=== PATIENT | male | born 1930 | race Caucasian/White ===

== ENCOUNTER 2017-07-08 07:35 | Outpatient (CLI) | payer MEDICARE, OTHER, BC ==
[2017-07-08] MEDS ORDERED: Iopamidol 370 76% 100 ML VIAL ONE (09:44)
--- NOTE | 2017-07-08 09:58 | CT ---
CT CHEST WITH IV CONTRAST CT ABDOMEN AND PELVIS WITH IV CONTRAST: History: Lymphoma. Re-staging. Comparison: 02-13-17 FINDINGS: Lungs remain hyperinflated with atelectasis and scarring at the lung bases. At the left posterolatera l lung base within the superior segment left lower lobe, a subpleural 0.5 cm noncalcified nodule is n ow evident. There is calcification within the arterial structures with fusiform ectasia of the ascending aorta, s imilar in appearance to the prior study. No enlarged lymph nodes are apparent within the mediastinum. Cystic lesion within the lateral segment left liver lobe is stable. The largest irregular shaped low density lesion within the spleen is now 4.4 x 3.2 x 3.7 cm greatest diameters. The more subtle ill-de fined lesion within the medial aspect of the spleen is 2.5 cm in greatest length. Cysts arise from the cortex of the kidneys. No enlarged lymph nodes are apparent within the abdomen o r pelvis. The nonenlarged lymph nodes to the left side of the urinary bladder and adjacent to the rig ht common femoral vein are less pronounced than on the previous study. There are degenerative changes of the lumbar spine. Diverticula arise from the colon without adjacent inflammation. IMPRESSION: 1. Continued slight interval improvement, with decreased conspicuity of the nonenlarged abdominal/pel nimco lymph nodes and slight interval decrease in size of the smaller splenic lesion. No new areas of a denopathy are evident. 2. The subpleural 0.5 cm nodule within the superior segment left lower lobe was not well visualized o n the 02-13-17 study but is stable compared to the 09-09-16 exam. Therefore, no new abnormalities are e vident. 3. Atherosclerosis. POS: YENI
== END 2017-07-08 07:36 | disposition home or self-care (01) ==
LOC: CT 07:35
PROVIDERS: ATTEND Internal Medicine Medical Oncology
DX: C85.90 Non-Hodgkin lymphoma, unspecified, unspecified site (principal); D73.89 Other diseases of spleen; R91.1 Solitary pulmonary nodule
CPT/HCPCS: 71260; 74177; 82565

== ENCOUNTER 2017-09-13 09:35 | Inpatient (IN) | payer MEDICARE, OTHER, BC ==
[2017-09-13] MEDS ORDERED: Nitroglycerin 0.4 MG TAB (25 Tab Bottle) ONE (10:09)
[2017-09-13 10:21] LABS: ALT (SGPT) 25 U/L (8-55); AST (SGOT) 24 U/L (5-34); Albumin 4.1 g/dL (3.4-4.8); Alkaline Phosphatase 97 U/L (40-150); Anion Gap 15 mmol/L (10-20); BUN (Urea Nitrogen) 28 mg/dL (8.4-25.7); Bilirubin, Total 0.6 mg/dL (0.2-1.2); CK (CPK) 65 U/L (30-200); Calc. Creatinine Clearance 0 mL/min (70-130); Calcium 9.4 mg/dL (7.8-10.44); Carbon Dioxide 23 mmol/L (23-31); Chloride 109 mmol/L (98-107); Estimated GFR-MDRD 58; Globulin 2.1 g/dL (2.4-3.5); Glucose 112 mg/dL (83-110); Potassium 4.2 mmol/L (3.5-5.1); Protein, Total 6.2 g/dL (5.8-8.1); Sodium 143 mmol/L (136-145)
[2017-09-13 10:27] LABS: CKMB 3.7 ng/mL (0-6.6); Troponin I 0.144 ng/mL (< 0.028)
[2017-09-13 10:35] LABS: #Eosinphils 0.1 thou/uL (0.0-0.7); #Lymphocytes 0.6 thou/uL (1.20-3.40); #Monocytes 0.4 thou/uL (0.11-0.59); #Neutrophils 3.1 thou/uL (1.40-6.50); %Basophils 0.4 % (0.0-1.0); %Eosinophils 1.8 % (0.0-10.0); %Lymphocytes 13.7 % (21.0-51.0); %Monocytes 10.4 % (0.0-10.0); %Neutrophils 73.7 % (42.0-75.0); Hemoglobin 13.5 g/dL (14.0-18.0); Mean Corpuscular HGB CONC 32.7 g/dL (32.0-36.0); Mean Corpuscular Hemoglobin 29.2 pg (27.0-31.0); Mean Corpuscular Volume 89.4 fl (80.0-94.0); Platelet Count 115 thou/uL (130-400); RBC Distribution Width 15.9 % (11.5-14.5); Red Blood Cell (RBC) Count 4.62 mill/uL (4.70-6.10); White Blood Cell (WBC) Count 4.2 thou/uL (4.8-10.8)
[2017-09-13] MEDS ORDERED: Furosemide 40 MG/4 ML VIAL ONE (11:35)
[2017-09-13] MEDS ORDERED: Nitroglycerin 2% Ointment 1 INCH/1 GM Packet ONE (11:43)
--- NOTE | 2017-09-13 11:47 | RAD ---
CHEST 1 VIEW: HISTORY: An 86-year-old male with a history of chest tightness for several days. COMPARISON: 10/21/16. FINDINGS: Cardiomegaly with left ICD. Right subclavian catheter and injection port. Mild bilateral vascular c ongestion and small pleural effusions which are new from the prior study. IMPRESSION: Developing mild vascular congestion and small pleural effusions with cardiomegaly. Evidence for mini mal or early congestive heart failure. Short-term followup suggested. POS: ESTEFANI
[2017-09-13] MEDS ORDERED: Acetaminophen 325 MG TAB PO PRN ×2 (12:49→13:18)
[2017-09-13] MEDS ORDERED: Ondansetron HCl/PF 4 MG/2 ML Vial IVP PRN (12:49)
[2017-09-13] MEDS ORDERED: Ondansetron ODT 4 MG TAB SL PRN (12:49)
[2017-09-13] MEDS ORDERED: Nitroglycerin 0.4 MG TAB (25 Tab Bottle) SL PRN (13:21)
[2017-09-13] MEDS ORDERED: Nitroglycerin 0.4 MG TAB (25 Tab Bottle) SL SCH (13:45)
[2017-09-13] MEDS ORDERED: Enoxaparin Sodium 80 MG/0.8 ML SYRINGE SC SCH (14:00)
[2017-09-13 14:01] LABS: Troponin I 0.183 ng/mL (< 0.028)
[2017-09-13] MEDS: Furosemide 40 MG/4 ML VIAL SLOW IVP SCH (14:26)
--- NOTE | 2017-09-13 16:21 | HP ---
PRIMARY CARE PHYSICIAN: Dr. Ortiz. CHIEF COMPLAINT: Shortness of breath/chest pain. HISTORY OF PRESENT ILLNESS: Patient is a very pleasant 86-year-old male, who [facility] the [facility] with complaints of shortness of breath and chest pain, which started night. The patient s tated that the shortness of breath woke him up night and then he started having some chest t ightness. The patient states that, at baseline, he does not have any chest pain; however, at times i f he exerts himself too much, he does get a little bit of shortness of breath. Patient stated that h e was resting when the chest tightness and shortness of breath occurred. The patient recently, about a few months ago, finished his course of chemotherapy for diagnosis of lymphoma. Patient does have a pacemaker for arrhythmias. The patient also has had a cardiac catheterization in 2014 with no sign ificant coronary disease; however, had a small aneurysm dilation. The patient currently states that he does have some chest discomfort, which has improved with the nitro paste. He denies any nausea, v omiting, or radiation of his chest tightness to his neck or his arms. The patient states that he nor benito sleeps flat; however, for the past few days he has been sleeping upright due to the worsening s hortness of breath. Patient is positive for orthopnea and PND. The patient also states that, at occ asional times, he feels that his heart racing really fast. Patient states that he has lost quite a b it of weight given his diagnosis of cancer. The ER doctor stated that initially reviewing the EKG shows concern for possible NJ, so she did call the on-call community integration specialist, who did not think it was an acute NJ that was going on. PAST MEDICAL HISTORY: 1. History of lymphoma, status post chemotherapy. 2. Hypertension. PAST SURGICAL HISTORY: It states on the charting appendectomy; however, upon asking the patient, he said he has not had any surgery in the past. SOCIAL HISTORY: He denies any alcohol or drug abuse; however, states that he used to smoke a cigar. ALLERGIES: No known drug allergies. FAMILY HISTORY: Mom lived up to the age of 95 and at old age. Father at the age of 70 and he had an NJ. REVIEW OF SYSTEMS: Except for the ones mentioned in the HPI, the rest of the review of systems were negative. Constitutional: Weight loss or gain, ability to conduct usual activities. Skin: Rash, i tching. Eyes: Double vision, pain. ENT/Mouth: Nose bleeding, neck stiffness, pain, tenderness. C ardiovascular: Palpitations, dyspnea on exertion, orthopnea. Respiratory: Shortness of breath, whe ezing, cough, hemoptysis, fever, or night sweats. Gastrointestinal: Poor appetite, abdominal pain, heartburn, nausea, vomiting, constipation, or diarrhea. Genitourinary: Urgency, frequency, dysuria, nocturia. Musculoskeletal: Pain, swelling. Neurologic/Psychiatric: Anxiety, depression. Allergy /Immunologic: Skin rash, bleeding tendency. PHYSICAL EXAMINATION: VITAL SIGNS: As the following, temperature 97.1, pulse 79, respirations are 20. He is 97% on 2 lite rs, blood pressure is 172/84. GENERAL: He is awake, alert, oriented x3, does not appear in distress. CARDIOVASCULAR: S1 and S2 present. Some arrhythmias; however, it is hard to say if it is atrial fib rillation versus the paced rhythm this patient is on. RESPIRATORY: Clear per auscultation. No rhonchi or wheezes noted. ABDOMEN: Soft and nontender. Bowel sounds are present x2. EXTREMITIES: No edema. LABORATORY DATA: As the following: WBC of 4.2, hemoglobin of 13.5, hematocrit of 41.3, platelets of 115. Chemistry: Sodium of 144, potassium 4.2, BUN of 28, creatinine 1.2. His troponins are mildly elevated at 0.144 to 0.183. His BNP is 2738. ASSESSMENT AND PLAN: The patient is a very pleasant 86-year-old male, who initially presented to the hospital with complaints of chest tightness and shortness of breath. 1. Chest tightness, shortness of breath, possible [id number] myocardial infarction. He does h ave chest pressure, chest tightness with elevated troponins. We will continue to trend the troponins x3. Cardiology consulted. We will put patient on Lovenox subcutaneous for Cardiology dosing and al so renal dosing. We will continue the patient's aspirin and Plavix. 2. Hypertension. The patient's blood pressure is really elevated. We will order some stat nitrogly cerin sublingual. If not, we will start patient on a drip. Patient does take home medications, we w ill resume them. 3. Elevated troponins, possible [id number] myocardial infarction. We will start the patient o n subcutaneous heparin and also consult Cardiology. I will also get [employer] to evaluate the patie nt's pacemaker for any kind of arrhythmia. There was some mention of possible ventricular tachycardi a. However, I am not really sure. So, we will ask [employer] to evaluate the patient's pacemaker. Patient's last ejection fraction was 50%-55%. This was in 10/2016.
[2017-09-13 16:32] LABS: Troponin I 0.179 ng/mL (< 0.028)
[2017-09-13] MEDS ORDERED: Metoprolol Tartrate 50 MG TAB PO SCH (21:00)
[2017-09-13] MEDS ORDERED: Labetalol HCl 100 MG/20 ML VIAL SLOW IVP PRN (21:24)
[2017-09-13] MEDS: Atorvastatin Calcium 20 MG TAB PO SCH (21:35)
[2017-09-14] MEDS: hydrALAZINE 20 MG/ML VIAL SLOW IVP PRN (01:52)
[2017-09-14 04:57] LABS: #Eosinphils 0.2 thou/uL (0.0-0.7); #Lymphocytes 0.7 thou/uL (1.20-3.40); #Monocytes 0.4 thou/uL (0.11-0.59); #Neutrophils 2.3 thou/uL (1.40-6.50); %Eosinophils 5.3 % (0.0-10.0); %Lymphocytes 19.3 % (21.0-51.0); %Monocytes 10.8 % (0.0-10.0); %Neutrophils 63.6 % (42.0-75.0); Hemoglobin 12.9 g/dL (14.0-18.0); Mean Corpuscular HGB CONC 33.3 g/dL (32.0-36.0); Mean Corpuscular Hemoglobin 29.4 pg (27.0-31.0); Mean Corpuscular Volume 88.3 fl (80.0-94.0); Mean Platelet Volume 10.1 fL (7.4-10.4); Platelet Count 114 thou/uL (130-400); RBC Distribution Width 15.9 % (11.5-14.5); Red Blood Cell (RBC) Count 4.39 mill/uL (4.70-6.10); White Blood Cell (WBC) Count 3.6 thou/uL (4.8-10.8)
[2017-09-14] MEDS: Furosemide 40 MG/4 ML VIAL SLOW IVP SCH ×2 (05:02→14:38)
[2017-09-14 05:15] LABS: Anion Gap 14 mmol/L (10-20); BUN (Urea Nitrogen) 30 mg/dL (8.4-25.7); Calc. Creatinine Clearance 38 mL/min (70-130); Calcium 9.6 mg/dL (7.8-10.44); Carbon Dioxide 27 mmol/L (23-31); Chloride 106 mmol/L (98-107); Estimated GFR-MDRD 52; Glucose 102 mg/dL (83-110); Potassium 3.7 mmol/L (3.5-5.1); Sodium 143 mmol/L (136-145)
[2017-09-14] MEDS: Digoxin 0.125 MG TAB PO SCH (08:58)
[2017-09-14] MEDS: Potassium Chloride 20 MEQ TAB PO SCH (08:59)
[2017-09-14] MEDS: Tamsulosin HCl 0.4 MG CAP PO SCH (08:59)
[2017-09-14] MEDS: Aspirin 81 mg Enteric Coated Tablet PO SCH (08:59)
[2017-09-14] MEDS ORDERED: NIFEdipine XL 30 MG TAB PO SCH (09:00)
[2017-09-14] MEDS ORDERED: Prevnar 13-Val Conj/PF 0.5 ML SYRINGE IM ONE (09:00)
[2017-09-14] MEDS ORDERED: Enoxaparin Sodium 80 MG/0.8 ML SYRINGE SC SCH (09:00)
--- NOTE | 2017-09-14 10:23 | PDOC.PN ---
- Subjective Encounter Start Date: 09/14/17 Encounter Start Time: 10:28 Subjective: No new complaints. -: Refused lasix today because he feels his urine output is "too much" -: NO acute events overnight - Objective Resuscitation Status: Resuscitation Status FULL:Full Resuscitation MAR Reviewed: Yes Vital Signs & Weight: Vital Signs (12 hours) Temp Pulse Resp BP Pulse Ox 09/14/17 08:50 98 F 80 20 176/64 H 92 L 09/14/17 08:01 97.6 F 60 20 173/87 H 97 09/14/17 03:27 97.7 F 81 24 H 162/82 H 94 L 09/14/17 01:52 78 09/14/17 01:51 192/80 H 09/13/17 23:34 162/78 H 09/13/17 23:18 98.8 F 78 22 H 96 Weight Weight 135 lb 3.2 oz I&O: 09/13/17 09/14/17 09/15/17 06:59 06:59 06:59 Intake Total 600 Output Total 2500 Balance -1900 Result Diagrams: 09/14/17 03:57 09/14/17 03:57 Phys Exam - Physical Examination Constitutional: NAD HEENT: PERRLA, moist MMs, sclera anicteric Neck: no JVD, supple, full ROM Respiratory: no wheezing, no rales, no rhonchi, clear to auscultation bilateral Cardiovascular: RRR, no significant murmur, no rub Gastrointestinal: soft, non-tender, no distention, positive bowel sounds Musculoskeletal: no edema, pulses present Neurological: non-focal, moves all 4 limbs Psychiatric: normal affect, A&O x 3 Skin: no rash, normal turgor Dx/Plan (1) Acute congestive heart failure with left ventricular diastolic dysfunction Code(s): I50.31 - ACUTE DIASTOLIC (CONGESTIVE) HEART FAILURE Status: Acute Comment: Improving with diuresis. Will continue furosemide and home medications. Awaiting cardiology review. Last EF 50-55%. (2) Elevated troponin Code(s): R74.8 - ABNORMAL LEVELS OF OTHER SERUM ENZYMES Status: Acute Comment: Likely 2/2 demand ischemia (type 2 NSTEMi). Trending down. (3) HTN (hypertension) Code(s): I10 - ESSENTIAL (PRIMARY) HYPERTENSION Status: Chronic Comment: Controlled and at goal. Monitor. (4) BPH (benign prostatic hyperplasia) Code(s): N40.0 - BENIGN PROSTATIC HYPERPLASIA WITHOUT LOWER URINRY TRACT SYMP Status: Chronic (5) Elevated serum creatinine Code(s): R79.89 - OTHER SPECIFIED ABNORMAL FINDINGS OF BLOOD CHEMISTRY Status : Acute Comment: Cat 2/2 diuretics. Will monitor. - Plan cont current plan of care, DVT proph w/lovenox * . Review of Systems - Review of Systems Constitutional: negative: fever, chills, sweats, weakness, malaise, other Eyes: negative: Pain, Vision Change, Conjunctivae Inflammation, Eyelid Inflammation, Redness, Other ENT: negative: Ear Pain, Ear Discharge, Nose Pain, Nose Discharge, Nose Congestion, Mouth Pain, Mouth Swelling, Throat Pain, Throat Swelling, Other Respiratory: negative: Cough, Dry, Shortness of Breath, Hemoptysis, SOB with Excertion, Pleuritic Pain, Sputum, Wheezing Cardiovascular: negative: chest pain, palpitations, orthopnea, paroxysmal nocturnal dyspnea, edema, light headedness, other Gastrointestinal: negative: Nausea, Vomiting, Abdominal Pain, Diarrhea, Constipation, Melena, Hematochezia, Other Genitourinary: negative: Dysuria, Frequency, Incontinence, Hematuria, Retention , Other Musculoskeletal: negative: Neck Pain, Shoulder Pain, Arm Pain, Back Pain, Hand Pain, Leg Pain, Foot Pain, Other Skin: negative: Rash, Lesions, Severino, Bruising, Other Neurological: negative: Weakness, Numbness, Incoordination, Change in Speech, Confusion, Seizures, Other - Medications/Allergies Allergies/Adverse Reactions: Allergies Allergy/AdvReac Type Severity Reaction Status Date / Time No Known Drug Allergies Allergy Verified 09/13/17 13:09 Medications: Current Medications Acetaminophen (Tylenol) 650 mg PO Q4H PRN PRN Reason: Headache/Fever or Pain Aspirin (Ecotrin) 81 mg PO DAILY [facility] [place] Last Admin: 09/14/17 08:59 Dose: 81 mg Atorvastatin Calcium (Lipitor) 20 mg PO HS [facility] Last Admin: 09/13/17 21:35 Dose: 20 mg Digoxin (Lanoxin) 0.125 mg PO DAILY [facility] Last Admin: 09/14/17 08:58 Dose: 0.125 mg Enoxaparin Sodium (Lovenox) 65 mg SC DAILY [facility] [place] Last Admin: 09/14/17 09:00 Dose: 65 mg Furosemide (Lasix) 40 mg SLOW IVP 0600,1400 [facility] [place] Last Admin: 09/14/17 05:02 Dose: Not Given Hydralazine HCl (Apresoline) 10 mg SLOW IVP Q4H PRN PRN Reason: SBP > 180 OR DBP > 100 Last Admin: 09/14/17 01:52 Dose: 10 mg Labetalol HCl (Normodyne) 10 mg SLOW IVP Q4H PRN PRN Reason: SBP> 180 OR DBP > 100 Last Admin: 09/13/17 21:34 Dose: 10 mg Nitroglycerin (Nitrostat) 0.4 mg SL Q5MIN PRN PRN Reason: Chest Pain Last Admin: 09/13/17 15:46 Dose: 0.4 mg Pantoprazole Sodium (Protonix) 40 mg PO DAILY [facility] [place] Last Admin: 09/14/17 08:59 Dose: 40 mg Potassium Chloride (K-Dur) 20 meq PO [facility] Stop: 09/17/17 08:01 Last Admin: 09/14/17 08:59 Dose: 20 meq Tamsulosin HCl (Flomax) 0.4 mg PO DAILY [facility] [place] Last Admin: 09/14/17 08:59 Dose: 0.4 mg
[2017-09-14] MEDS ORDERED: Carvedilol 3.125 MG TAB PO SCH (11:45)
--- NOTE | 2017-09-14 16:10 | CON ---
DATE OF CONSULTATION: 09/14/2017 HISTORY: Victorino Callaway is an 86-year-old white male, who is followed with Dr. Swain for many years. He underwent cardiac catheterization in 04/1989. 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 He did undergo ergonovine infusion and developed 40%-50% narrowing in the first diagonal. He has had a pacemaker placed and that was recently replaced in 06/2017. Most recent echocardiogram was in 08/2016, he had an ejection fraction of 55%-60% with moderate aortic insufficiency, moderate mitral regurgitation, moderate tricuspid regurgitation. He also underwent a Cardiolite scan in the office in 06/2014, which apparently was unremarkable. He does state that he has been having increasing exertional dyspnea. He has not had any chest discomfort until the morning of 09/13/2017 when he started to have chest tightness associated with shortness of breath. The pain was continuous and was pleuritic in nature. Pain lasted for approximately 6-8 hours. He came to the emergency room for further evaluation. At the present time, he denied any chest discomfort. PAST MEDICAL HISTORY: He is recently diagnosed having lymphoma and just finished a course of chemotherapy at the end of last year. He has hypertension , paroxysmal atrial fibrillation on the pacemaker, and hypercholesterolemia. MEDICATIONS: Potassium 20 mEq daily, furosemide 20 daily, digoxin 0.125 daily, atorvastatin 20 at bedtime, Flomax 0.4 daily, and aspirin 81 daily. ALLERGIES: None. OPERATIONS: Pacemaker insertion. SOCIAL HISTORY: Former cigar smoker. Does not drink. FAMILY HISTORY: Father of an myocardial infraction. REVIEW OF SYSTEMS: Twelve point review of systems otherwise unremarkable. PHYSICAL EXAMINATION: VITAL SIGNS: Blood pressure 176/64, pulse of 80. HEENT: PERRL. NECK: Supple. LUNGS: Chest reveals faint rales at the right base. CARDIAC: S1 and S2 are normal without any S3 or S4. There is a 2/6 systolic murmur in the aortic area and also a 2/6 diastolic decrescendo murmur in the aortic area. ABDOMEN: Normal bowel sounds without tenderness, organomegaly. EXTREMITIES: Revealed trace pretibial edema. NEUROLOGIC: Grossly intact. SKIN: Warm and dry. LABORATORY DATA: EKG reveals atrial pacing, occasional ventricular pacing, and probable left ventricular hypertrophy. Chest x-ray revealed mild vascular congestion and small pleural effusions. Sodium 143, potassium 3.7, chloride 106 , carbon dioxide 27, BUN 30, creatinine 1.31. Troponin I 0.183. BNP 2738.0, hemoglobin 12.9, hematocrit 38.8, white count 3600, platelets 114,000. IMPRESSION: 1. Possible non ST elevation myocardial infarction. 2. Probable diastolic heart failure with vascular congestion as well as small pleural effusions on chest x-ray, significantly elevated BNP, but normal left ventricular systolic function on echo in the past. 3. 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 4. Aortic insufficiency murmur heard at this time. 5. Paroxysmal atrial fibrillation with episodes seen on the pacemaker up to 1 hour. 6. Hypercholesterolemia. 7. Status post pacemaker. PLAN: Patient will be diuresed. Echocardiogram will be performed to reassess left ventricular function as well as reassessment of his aortic insufficiency now that a murmur is heard. Consideration also may need to be given to cardiac catheterization. VAISHALI
[2017-09-14] MEDS: Carvedilol 6.25 MG TAB PO SCH (16:54)
[2017-09-14] MEDS: Atorvastatin Calcium 20 MG TAB PO SCH (21:54)
[2017-09-15 04:33] LABS: #Eosinphils 0.3 thou/uL (0.0-0.7); #Lymphocytes 0.8 thou/uL (1.20-3.40); #Monocytes 0.4 thou/uL (0.11-0.59); #Neutrophils 1.3 thou/uL (1.40-6.50); %Basophils 1.3 % (0.0-1.0); %Lymphocytes 27.7 % (21.0-51.0); %Monocytes 13.5 % (0.0-10.0); %Neutrophils 45.6 % (42.0-75.0); Mean Corpuscular HGB CONC 33.1 g/dL (32.0-36.0); Mean Corpuscular Hemoglobin 29.6 pg (27.0-31.0); Mean Corpuscular Volume 89.4 fl (80.0-94.0); Mean Platelet Volume 9.7 fL (7.4-10.4); Platelet Count 105 thou/uL (130-400); RBC Distribution Width 15.7 % (11.5-14.5); Red Blood Cell (RBC) Count 4.06 mill/uL (4.70-6.10); White Blood Cell (WBC) Count 2.7 thou/uL (4.8-10.8)
[2017-09-15 04:49] LABS: Anion Gap 12 mmol/L (10-20); BUN (Urea Nitrogen) 34 mg/dL (8.4-25.7); Calc. Creatinine Clearance 43 mL/min (70-130); Calcium 9.1 mg/dL (7.8-10.44); Carbon Dioxide 27 mmol/L (23-31); Chloride 107 mmol/L (98-107); Estimated GFR-MDRD 64; Glucose 88 mg/dL (83-110); Potassium 3.9 mmol/L (3.5-5.1); Sodium 142 mmol/L (136-145)
[2017-09-15] MEDS: Furosemide 40 MG/4 ML VIAL SLOW IVP SCH ×2 (07:36→14:04)
[2017-09-15 08:37] VITALS: BMI 21.1
[2017-09-15] MEDS: Carvedilol 6.25 MG TAB PO SCH ×3 (09:12→20:29)
[2017-09-15] MEDS: Potassium Chloride 20 MEQ TAB PO SCH (09:12)
[2017-09-15] MEDS: Digoxin 0.125 MG TAB PO SCH (09:12)
[2017-09-15] MEDS: Tamsulosin HCl 0.4 MG CAP PO SCH (09:13)
[2017-09-15] MEDS: Aspirin 81 mg Enteric Coated Tablet PO SCH (09:37)
--- NOTE | 2017-09-15 11:50 | PDOC.PN ---
- Subjective Encounter Start Date: 09/15/17 Encounter Start Time: 12:00 Subjective: Feels better. -: No acute events overnight. Patient was going to leave AMA to be with his (who is wheelchair bound) but decided to stay after they told him his could be brought here to visit. - Objective Resuscitation Status: Resuscitation Status FULL:Full Resuscitation MAR Reviewed: Yes Vital Signs & Weight: Vital Signs (12 hours) Temp Pulse Resp BP Pulse Ox 09/15/17 08:41 98 F 72 20 178/76 H 93 L 09/15/17 04:00 98.0 F 75 20 174/89 H 99 Weight Admit Weight 144 lb Weight 139 lb I&O: 09/14/17 09/15/17 09/16/17 06:59 06:59 06:59 Intake Total 600 570 Output Total 2500 75 Balance -1900 495 Result Diagrams: 09/15/17 04:01 09/15/17 04:01 Phys Exam - Physical Examination Constitutional: NAD HEENT: PERRLA, moist MMs, sclera anicteric Neck: no JVD, supple, full ROM Respiratory: no wheezing, no rales, no rhonchi, clear to auscultation bilateral Cardiovascular: RRR, no rub Systolic murmur Gastrointestinal: soft, non-tender, no distention, positive bowel sounds Musculoskeletal: no edema, pulses present Neurological: non-focal, moves all 4 limbs Psychiatric: normal affect, A&O x 3 Skin: no rash, normal turgor Dx/Plan (1) Acute congestive heart failure with left ventricular diastolic dysfunction Code(s): I50.31 - ACUTE DIASTOLIC (CONGESTIVE) HEART FAILURE Status: Acute Comment: Neal pain free, Improving with diuresis. Will continue furosemide and home medications. Last EF 50-55%. Cardiology reviewed. Patient might need cardiac catheterization. (2) Elevated troponin Code(s): R74.8 - ABNORMAL LEVELS OF OTHER SERUM ENZYMES Status: Acute Comment: STEMi v NSTEMi. Trending down. Cardiology on board. Recs appreciated. (3) HTN (hypertension) Code(s): I10 - ESSENTIAL (PRIMARY) HYPERTENSION Status: Chronic Qualifiers: Hypertension type: essential hypertension Qualified Code(s): I10 - Essential (primary) hypertension Comment: Not at goal. Coreg dose increased. Will monitor and titrate regimen. (4) BPH (benign prostatic hyperplasia) Code(s): N40.0 - BENIGN PROSTATIC HYPERPLASIA WITHOUT LOWER URINRY TRACT SYMP Status: Chronic Qualifiers: Lower urinary tract symptom presence: symptoms absent Qualified Code(s): N40.0 - Benign prostatic hyperplasia without lower urinary tract symptoms Comment: Continue home medications. (5) Elevated serum creatinine Code(s): R79.89 - OTHER SPECIFIED ABNORMAL FINDINGS OF BLOOD CHEMISTRY Status : Acute Comment: Improving. Likleycardiorenal syndrome. Will monitor. (6) Thrombocytopenia Code(s): D69.6 - THROMBOCYTOPENIA, UNSPECIFIED Status: Acute Comment: No signs of bleeding. Heparin products being held. Will place on SCds while in bed. - Plan cont current plan of care, DVT proph w/SCDs * . Review of Systems - Medications/Allergies Allergies/Adverse Reactions: Allergies Allergy/AdvReac Type Severity Reaction Status Date / Time No Known Drug Allergies Allergy Verified 09/13/17 13:09 Medications: Current Medications Acetaminophen (Tylenol) 650 mg PO Q4H PRN PRN Reason: Headache/Fever or Pain Aspirin (Ecotrin) 81 mg PO DAILY [facility] Last Admin: 09/15/17 09:37 Dose: 81 mg Atorvastatin Calcium (Lipitor) 20 mg PO HS [facility] Last Admin: 09/14/17 21:54 Dose: 20 mg Carvedilol (Coreg) 6.25 mg PO BID-WM [facility] Last Admin: 09/15/17 09:12 Dose: 6.25 mg Digoxin (Lanoxin) 0.125 mg PO DAILY [facility] Last Admin: 09/15/17 09:12 Dose: 0.125 mg Furosemide (Lasix) 40 mg SLOW IVP 0600,1400 [facility] Last Admin: 09/15/17 07:36 Dose: Not Given Hydralazine HCl (Apresoline) 10 mg SLOW IVP Q4H PRN PRN Reason: SBP > 180 OR DBP > 100 Last Admin: 09/14/17 01:52 Dose: 10 mg Labetalol HCl (Normodyne) 10 mg SLOW IVP Q4H PRN PRN Reason: SBP> 180 OR DBP > 100 Last Admin: 09/13/17 21:34 Dose: 10 mg Nitroglycerin (Nitrostat) 0.4 mg SL Q5MIN PRN PRN Reason: Chest Pain Last Admin: 09/13/17 15:46 Dose: 0.4 mg Pantoprazole Sodium (Protonix) 40 mg PO DAILY [facility] Last Admin: 09/15/17 09:12 Dose: 40 mg Potassium Chloride (K-Dur) 20 meq PO [facility] Stop: 09/17/17 08:01 Last Admin: 09/15/17 09:12 Dose: 20 meq Tamsulosin HCl (Flomax) 0.4 mg PO DAILY [facility] Last Admin: 09/15/17 09:13 Dose: 0.4 mg
[2017-09-15] MEDS: Atorvastatin Calcium 20 MG TAB PO SCH (20:29)
[2017-09-15] MEDS: hydrALAZINE 20 MG/ML VIAL SLOW IVP PRN (20:30)
[2017-09-16 05:13] LABS: Anion Gap 11 mmol/L (10-20); BUN (Urea Nitrogen) 39 mg/dL (8.4-25.7); Band 1 % (5-11); Calc. Creatinine Clearance 48 mL/min (70-130); Calcium 9.6 mg/dL (7.8-10.44); Carbon Dioxide 26 mmol/L (23-31); Cardiac Risk 3.2 (Less than 4.5); Chloride 107 mmol/L (98-107); Cholesterol 161 mg/dl (< 200 Desired); Eosinophils 4 % (0-10); Estimated GFR-MDRD 72; Glucose 99 mg/dL (83-110); HDL Cholesterol 50 mg/dL (>60 Neg Risk); Hemoglobin 12.9 g/dL (14.0-18.0); LDL Cholesterol, Calculated 100 mg/dL; Lymphocytes 22 % (21-51); MDiff Complete? YES; Mean Corpuscular HGB CONC 32.7 g/dL (32.0-36.0); Mean Corpuscular Hemoglobin 29.3 pg (27.0-31.0); Mean Corpuscular Volume 89.6 fl (80.0-94.0); Mean Platelet Volume 10.7 fL (7.4-10.4); Monocytes 17 % (0-10); Neutrophil 56 % (42-75); Platelet Count 127 thou/uL (130-400); Potassium 4.1 mmol/L (3.5-5.1); RBC Distribution Width 15.9 % (11.5-14.5); Red Blood Cell (RBC) Count 4.41 mill/uL (4.70-6.10); Sodium 140 mmol/L (136-145); Triglycerides 56 mg/dL (Less than 150); White Blood Cell (WBC) Count 3.7 thou/uL (4.8-10.8)
[2017-09-16] MEDS: Furosemide 40 MG/4 ML VIAL SLOW IVP SCH (06:30)
[2017-09-16] MEDS: Digoxin 0.125 MG TAB PO SCH (08:23)
[2017-09-16] MEDS: Potassium Chloride 20 MEQ TAB PO SCH (08:23)
[2017-09-16] MEDS: Aspirin 81 mg Enteric Coated Tablet PO SCH (08:23)
[2017-09-16] MEDS: Tamsulosin HCl 0.4 MG CAP PO SCH (08:24)
[2017-09-16] MEDS: Carvedilol 6.25 MG TAB PO SCH ×3 (08:24→20:07)
[2017-09-16] MEDS ORDERED: Iopamidol 370 76% 100 ML VIAL ONE (09:18)
[2017-09-16] MEDS ORDERED: Iopamidol 370 76% 50 ML VIAL FS ONE (09:18)
[2017-09-16] MEDS ORDERED: Communication Order-Pharmacy FS SCH (09:45)
[2017-09-16] MEDS: Sodium Chloride 0.9% 1,000 ML IV SCH ×2 (10:07→19:31)
--- NOTE | 2017-09-16 11:09 | PDOC.PN ---
- Subjective Encounter Start Date: 09/16/17 Encounter Start Time: 11:11 Subjective: No complaints. Feels "great" -: No acute events overnight. - Objective Resuscitation Status: Resuscitation Status FULL:Full Resuscitation MAR Reviewed: Yes Vital Signs & Weight: Vital Signs (12 hours) Temp Pulse Resp BP Pulse Ox 09/16/17 08:23 73 09/16/17 08:00 98 F 73 16 98 09/16/17 07:42 98 F 83 14 125/84 98 09/16/17 04:00 98.0 F 68 18 169/83 H 96 09/15/17 23:49 177/79 H Weight Admit Weight 144 lb Weight 138 lb 6.4 oz I&O: 09/15/17 09/16/17 09/17/17 06:59 06:59 06:59 Intake Total 570 1420 Output Total 75 100 Balance 495 1320 Result Diagrams: 09/16/17 04:07 09/16/17 04:07 Phys Exam - Physical Examination Constitutional: NAD HEENT: PERRLA, moist MMs, sclera anicteric Neck: no JVD, supple, full ROM Respiratory: no wheezing, no rales, no rhonchi, clear to auscultation bilateral Cardiovascular: RRR, no significant murmur, no rub Gastrointestinal: soft, non-tender, no distention, positive bowel sounds Musculoskeletal: no edema, pulses present Neurological: non-focal, moves all 4 limbs Psychiatric: normal affect, A&O x 3 Skin: no rash, normal turgor Dx/Plan (1) Acute congestive heart failure with left ventricular diastolic dysfunction Code(s): I50.31 - ACUTE DIASTOLIC (CONGESTIVE) HEART FAILURE Status: Acute Comment: Stable. Chest pain free, Improving with diuresis. Continue furosemide and home medications. EF 50-55%. Cardiology reviewed- scheduled for cardiac catheterization. (2) Elevated troponin Code(s): R74.8 - ABNORMAL LEVELS OF OTHER SERUM ENZYMES Status: Acute Comment: STEMi v NSTEMi. Trending down. Cardiology on board. Recs appreciated. Scheduled for [facility]. (3) HTN (hypertension) Code(s): I10 - ESSENTIAL (PRIMARY) HYPERTENSION Status: Chronic Qualifiers: Hypertension type: essential hypertension Qualified Code(s): I10 - Essential (primary) hypertension Comment: Controlled. At goal. Continue regimen. (4) BPH (benign prostatic hyperplasia) Code(s): N40.0 - BENIGN PROSTATIC HYPERPLASIA WITHOUT LOWER URINRY TRACT SYMP Status: Chronic Qualifiers: Lower urinary tract symptom presence: symptoms absent Qualified Code(s): N40.0 - Benign prostatic hyperplasia without lower urinary tract symptoms Comment: Continue home medications. (5) Elevated serum creatinine Code(s): R79.89 - OTHER SPECIFIED ABNORMAL FINDINGS OF BLOOD CHEMISTRY Status : Resolved Comment: Improving. Likleycardiorenal syndrome. Will monitor. (6) Thrombocytopenia Code(s): D69.6 - THROMBOCYTOPENIA, UNSPECIFIED Status: Resolved Comment: Improving. No signs of bleeding. Heparin products being held. Continue SCDs while in bed. - Plan cont current plan of care, out of bed/ambulate, DVT proph w/SCDs * . Review of Systems - Medications/Allergies Allergies/Adverse Reactions: Allergies Allergy/AdvReac Type Severity Reaction Status Date / Time No Known Drug Allergies Allergy Verified 09/13/17 13:09 Medications: Current Medications Acetaminophen (Tylenol) 650 mg PO Q4H PRN PRN Reason: Headache/Fever or Pain Aspirin (Ecotrin) 81 mg PO DAILY [facility] Last Admin: 09/16/17 08:23 Dose: 81 mg Atorvastatin Calcium (Lipitor) 20 mg PO HS [facility] Last Admin: 09/15/17 20:29 Dose: 20 mg Carvedilol (Coreg) 6.25 mg PO TID [facility] Last Admin: 09/16/17 08:24 Dose: 6.25 mg Digoxin (Lanoxin) 0.125 mg PO DAILY [facility] Last Admin: 09/16/17 08:23 Dose: 0.125 mg Hydralazine HCl (Apresoline) 10 mg SLOW IVP Q4H PRN PRN Reason: SBP > 180 OR DBP > 100 Last Admin: 09/15/17 20:30 Dose: 10 mg Sodium Chloride (Normal Saline 0.9%) 1,000 mls @ 100 mls/hr IV .Q10H [facility] Last Admin: 09/16/17 10:07 Dose: 1,000 mls Labetalol HCl (Normodyne) 10 mg SLOW IVP Q4H PRN PRN Reason: SBP> 180 OR DBP > 100 Last Admin: 09/13/17 21:34 Dose: 10 mg Miscellaneous Information (Communication Order-Pharmacy) 0 each FS ONE [facility] Stop: 09/16/17 21:00 Nitroglycerin (Nitrostat) 0.4 mg SL Q5MIN PRN PRN Reason: Chest Pain Last Admin: 09/13/17 15:46 Dose: 0.4 mg Pantoprazole Sodium (Protonix) 40 mg PO DAILY [facility] Last Admin: 09/16/17 08:24 Dose: 40 mg Potassium Chloride (K-Dur) 20 meq PO QAM-WM [facility] Stop: 09/17/17 08:01 Last Admin: 09/16/17 08:23 Dose: 20 meq Sodium Chloride (Flush - Normal Saline) 10 ml IVF Q12HR [facility] Sodium Chloride (Flush - Normal Saline) 10 ml IVF PRN PRN PRN Reason: Saline Flush Tamsulosin HCl (Flomax) 0.4 mg PO DAILY [facility] Last Admin: 09/16/17 08:24 Dose: 0.4 mg
[2017-09-16 11:24] LABS: INR-International Normal Ratio 1.1; PTT 27.3 SEC (22.9-36.1)
[2017-09-16] MEDS ORDERED: Lidocaine 1% (PF) 30 ML VIAL ONE (11:38)
[2017-09-16] MEDS ORDERED: Fentanyl 250 MCG/5 ML VIAL ONE (12:31)
[2017-09-16] MEDS ORDERED: Nitroglycerin 4.9 GM Bottle ONE (12:36)
[2017-09-16] MEDS ORDERED: Metoprolol Tartrate 5 MG/5 ML VIAL ONE (12:48)
[2017-09-16] MEDS ORDERED: hydrALAZINE 20 MG/ML VIAL ONE (13:05)
[2017-09-16] MEDS ORDERED: Heparin 10,000 UNITS/1 ML VIAL ONE ×2 (13:05→13:56)
[2017-09-16] MEDS ORDERED: TICAGRELOR 90 MG TABLET ONE (13:07)
[2017-09-16] MEDS ORDERED: Nitroglycerin 100MG/250ML BOT 250 ML ONE (13:15)
[2017-09-16] MEDS ORDERED: cloNIDine 0.1 MG TAB PO PRN (14:22)
[2017-09-16] MEDS ORDERED: TICAGRELOR 90 MG TABLET PO SCH (14:30)
[2017-09-16] MEDS ORDERED: Carvedilol 3.125 MG TAB ONE (16:12)
[2017-09-16] MEDS ORDERED: Acetaminophen 325 MG TAB ONE (17:37)
[2017-09-16] MEDS ORDERED: Labetalol HCl 100 MG/20 ML VIAL ONE (17:52)
[2017-09-16] MEDS ORDERED: Nitroglycerin 2% Ointment 1 INCH/1 GM Packet ONE (18:31)
[2017-09-16] MEDS: TICAGRELOR 90 MG TABLET PO SCH (19:10)
[2017-09-16] MEDS ORDERED: Amlodipine 5 MG TAB PO SCH (19:15)
[2017-09-16] MEDS ORDERED: Nitroglycerin 2% Ointment 1 INCH/1 GM Packet TOP SCH (20:00)
[2017-09-16] MEDS: Atorvastatin Calcium 20 MG TAB PO SCH (20:07)
[2017-09-16] MEDS ORDERED: Furosemide 20 MG/2 ML VIAL SLOW IVP SCH (23:00)
[2017-09-17 05:49] LABS: ALT (SGPT) 27 U/L (8-55); AST (SGOT) 32 U/L (5-34); Alkaline Phosphatase 92 U/L (40-150); Anion Gap 14 mmol/L (10-20); BUN (Urea Nitrogen) 34 mg/dL (8.4-25.7); Calc. Creatinine Clearance 44 mL/min (70-130); Calcium 9.6 mg/dL (7.8-10.44); Carbon Dioxide 23 mmol/L (23-31); Chloride 106 mmol/L (98-107); Estimated GFR-MDRD 64; Globulin 2.6 g/dL (2.4-3.5); Glucose 103 mg/dL (83-110); Potassium 4.3 mmol/L (3.5-5.1); Protein, Total 6.6 g/dL (5.8-8.1); Sodium 139 mmol/L (136-145)
[2017-09-17 06:17] LABS: #Lymphocytes 0.9 thou/uL (1.20-3.40); #Monocytes 0.6 thou/uL (0.11-0.59); #Neutrophils 4.7 thou/uL (1.40-6.50); %Basophils 0.5 % (0.0-1.0); %Eosinophils 0.8 % (0.0-10.0); %Lymphocytes 14.7 % (21.0-51.0); %Monocytes 9.6 % (0.0-10.0); %Neutrophils 74.4 % (42.0-75.0); Hemoglobin 14.7 g/dL (14.0-18.0); Mean Corpuscular HGB CONC 32.9 g/dL (32.0-36.0); Mean Corpuscular Hemoglobin 29.5 pg (27.0-31.0); Mean Corpuscular Volume 89.5 fl (80.0-94.0); Mean Platelet Volume 10.3 fL (7.4-10.4); Platelet Count 127 thou/uL (130-400); Red Blood Cell (RBC) Count 4.99 mill/uL (4.70-6.10); White Blood Cell (WBC) Count 6.3 thou/uL (4.8-10.8)
[2017-09-17] MEDS ORDERED: Amlodipine 5 MG TAB PO SCH (09:00)
[2017-09-17] MEDS ORDERED: Furosemide 20 MG TAB PO SCH (09:00)
[2017-09-17] MEDS: Potassium Chloride 20 MEQ TAB PO SCH (09:14)
[2017-09-17] MEDS: Digoxin 0.125 MG TAB PO SCH (09:14)
[2017-09-17] MEDS: Carvedilol 6.25 MG TAB PO SCH (09:14)
[2017-09-17] MEDS: Tamsulosin HCl 0.4 MG CAP PO SCH (09:14)
[2017-09-17] MEDS: TICAGRELOR 90 MG TABLET PO SCH (09:15)
[2017-09-17] MEDS: Aspirin 81 mg Enteric Coated Tablet PO SCH (09:15)
[2017-09-17 09:21] VITALS: BP 129/63
[2017-09-17 09:27] VITALS: TEMP 97.5
[2017-09-17] MEDS ORDERED: Spironolactone 25 MG TAB PO SCH ×2 (09:30)
--- NOTE | 2017-09-17 10:01 | PRG ---
DATE OF SERVICE: 09/17/2017 Mr. Callaway is doing well today. He underwent percutaneous stent implantation of the proximal LAD yeste rd. Mr. Callaway is awake and alert, no chest pain or pressure. PHYSICAL EXAMINATION: VITAL SIGNS: Blood pressure was high last night, but today it is 144/66, pulse 60. LUNGS: Clear. CARDIAC: Normal S1, normal S2. ABDOMEN: Soft, nontender. Right groin mildly tender. ASSESSMENT: 1. Diastolic heart failure, improved. 2. Severe coronary stenosis in the proximal LAD successfully stented. He has moderate disease in th e mid LAD not stented. 3. Nonsustained ventricular tachycardia, no recurrence. 4. Normal left ventricular systolic function. 5. Renal failure, improved. 6. Hypertension, difficult to control. 7. Previous pacemaker. PLAN: 1. He will go home on Coreg 12.5 mg twice daily. 2. Spironolactone 25 mg a day. 3. Furosemide 20 mg a day. 4. Aspirin 81 mg a day. 5. Brilinta 90 mg twice a day. 6. Atorvastatin 20 mg a day. 7. Amlodipine 5 mg a day. 8. Base met in 1 week. At this time, I have not started SUMI inhibitors or ARB in view of the history of renal failure. I am also going to start spironolactone. If the patient's renal function is normal, could consider addin g an SUMI inhibitor or ARB, but will not do it, so at the present time his systolic function is also n ormal. Need to try to avoid renal insufficiency. Long-term prognosis is guarded in this pleasant el naomy gentleman. We are going to do an ultrasound of his right groin as the stick was somewhat highe r than usual and he had some mild oozing from his groin last night. We will do this prior to being d ischarged.
--- NOTE | 2017-09-17 14:34 | DIS ---
DATE OF ADMISSION: 09/13/2017 DATE OF DISCHARGE: 09/17/2017 DISCHARGE DIAGNOSES: Acute congestive heart failure with left ventricular diastolic dysfunction, netta vated troponin, hypertension, benign prostatic hypertrophy, elevated creatinine and thrombocytopenia. HISTORY OF PRESENT ILLNESS AND HOSPITAL COURSE: An 86-year-old male who presented to the hospital wi complaints of shortness of breath and chest pain, which started the day before presentation on [place]er[place] ay. The patient had shortness of breath, which woke him up on night and was associated w ith chest tightness. At his baseline, he did not have any chest pain; however, he developed chest pa in if he exerts himself too much. He has a recent history of lymphoma and ended chemotherapy for thi s. He has a pacemaker in situ for arrhythmia. He has had a cardiac catheterization in 2014 with no significant coronary artery disease; however, had a small aneurysmal dilatation. He had orthopnea, P ND in addition to his worsening shortness of breath as well as palpitations. Physical examination wa s significant for S1 and S2 heart sounds, but no edema. His labs showed elevated BNP of 2738 and mil d troponin elevation and assessment of NSTEMI and acute diastolic heart failure and was admitted. Th e patient was started on IV diuretics and admitted to hospital. His troponins were trended and it tr ended down. He was seen by Cardiology and eventually underwent cardiac catheterization. This reveal ed 2-vessel disease with severe stenosis of the proximal LAD and a normal EF. He successfully had a PCI/drug-eluting stent placed in his LAD. His echocardiogram also revealed an ejection fraction of 5 0% to 55%. He improved remarkably with diuresis and he was discharged home. DISCHARGE MEDICATIONS: Amlodipine 5 mg daily, carvedilol 6.25 mg 3 times a day, sublingual nitroglyc karin 0.4 mg every 5 minutes as needed for chest pain, Brilinta 90 mg twice a day, tamsulosin 0.4 mg d aily, aspirin 81 mg daily, digoxin 125 mcg daily, atorvastatin 20 mg at bedtime, potassium chloride 2 0 mEq daily and furosemide 20 mg daily. PHYSICAL EXAMINATION: He was examined on the day of discharge. VITAL SIGNS: Temperature 97.5 degree Fahrenheit, blood pressure 129/63, pulse rate 74, respiratory r ate 18 and oxygen saturation 95% on room air. GENERAL: Not in acute distress, sitting comfortably in bed. HEENT: PERRLA, EOMI. Moist mucous membranes. Sclerae are anicteric. NECK: No JVD. Supple, with full range of movement. RESPIRATORY: Vesicular breath sounds bilaterally with no wheezes, rales or rhonchi. CARDIOVASCULAR: S1 and S2 with regular rate and rhythm. He has a systolic murmur. GASTROINTESTINAL: Soft, nontender and nondistended with positive bowel sounds. MUSCULOSKELETAL: No edema or pulses present. NEUROLOGICAL: Nonfocal, moving all four limbs. PSYCHIATRIC: Normal mood and affect. Alert and oriented x3. SKIN: No rash with normal turgor. LABORATORY DATA: WBC 6.3, hemoglobin 14.7 and platelet count 127. Sodium 139, potassium 4.3, chlori de 106, carbon dioxide 23, anion gap 14, BUN 34, creatinine 1.1, glucose 103 and calcium 9.6. IMAGING DATA: Lower extremity ultrasound, chest x-ray and echocardiogram. PROCEDURE PERFORMED: Cardiac catheterization. CONSULTS: Cardiology. CONDITION AT DISCHARGE: Stable and improved. DIET: Heart healthy, low salt. ACTIVITY: Resume as tolerated and as directed by cardiology. CARE GOALS: He is to follow up with his primary care physician within 1 week of discharge for repeat labs. Discharge time 65 minutes including chart review and documentation.
--- NOTE | 2017-09-17 16:44 | ULT ---
FOCUSED VASCULAR ULTRASOUND OF THE RIGHT INGUINAL REGION 09/17/17 COMPARISON: None. HISTORY: Recent catheterization, right groin discomfort. Evaluate for a pseudoaneurysm. TECHNIQUE: Multiplanar rose scale sonographic imaging of the arterial and venous structures of the right inguina l region obtained with color flow and spectral analysis. FINDINGS: The right common femoral artery and right common femoral vein are patent and demonstrate appropriate arterial and venous waveforms respectively. No sonographic evidence for hematoma or pseudoaneurysm se en. IMPRESSION: No evidence for pseudoaneurysm. POS: [facility]
[2017-09-17] MEDS ORDERED: Carvedilol 6.25 MG TAB PO SCH (17:00)
--- NOTE | 2017-09-17 20:25 | EKG ---
Test Reason : Blood Pressure : / mmHG Vent. Rate : 069 BPM Atrial Rate : 069 BPM P-R Int : 104 ms QRS Dur : 104 ms QT Int : 458 ms P-R-T Axes : 000 023 175 degrees QTc Int : 490 ms Electronic atrial pacemaker Left ventricular hypertrophy with repolarization abnormality Prolonged QT Abnormal ECG When compared with ECG of 16-SEP-2017 14:39, No significant change was found Confirmed by TIM FAITH, SKali ([id number]) on 09/17/2017 8:24:35 PM Referred By: GRACE Confirmed By:DR. Nicole DUMONT MD
[2017-09-18] MEDS ORDERED: Spironolactone 25 MG TAB PO SCH (08:00)
--- NOTE | 2017-09-19 11:56 | EKG ---
Test Reason : Blood Pressure : / mmHG Vent. Rate : 108 BPM Atrial Rate : 080 BPM P-R Int : 124 ms QRS Dur : 094 ms QT Int : 414 ms P-R-T Axes : 000 014 192 degrees QTc Int : 554 ms Electronic atrial pacemaker Left ventricular hypertrophy with repolarization abnormality Abnormal ECG Confirmed by [facility] OLIVER M.D. ([id number]), video tape editor RUBIN MUNOZ ([id number]) on 09/19/2017 11:56:08 AM Referred By: Confirmed By:[facility]I OLIVER M.D.
--- NOTE | 2017-09-22 11:24 | PQF ---
MOUNIKA CARLTON OLADIPO [id number] CLINICAL DOCUMENTATION CLARIFICATION FORM: POST DISCHARGE Addendum to original discharge summary date: 09/17/2017 MOUNIKA CARLTON [id number] NILS WATKINS YOUR INPUT IS NEEDED TO CORRECTLY CODE A DIAGNOSIS FOR YOUR PATIENT. DATE: 09/22/2017 ATTN: Dr. Wilkes Please exercise your independent, professional judgment in responding to the clarification form. Clinical indicators are provided on the bottom of this form for your review Please check appropriate box(s) to clarify if the following diagnosis has been ruled in or ruled out: NSTEMI [ ] Ruled in diagnosis [x ] Continue to treat [ ] Resolved [ ] Ruled out diagnosis [ ] Cannot rule out diagnosis [ ] Other diagnosis (please specify) [ ] Unable to determine In addition, please specify: Present on Admission (POA): [ x] Yes [ ] No [ ] Unable to determine For continuity of documentation, please document condition throughout progress notes and discharge summary. Thank You. CLINICAL INDICATORS - SIGNS / SYMPTOMS / LABS Per H&P: Chest tightness with shortness of breath and elevated troponins-- Possible Inc-IX-vqouafdvr myocardial infarction. Per cardiology consult: Possible non ST elevation myocardial infarction. Per discharge summary: Elevated troponin. RISK FACTORS (per cardiology consultation/H&P) Diastolic heart failure. Hypertension. Mild CAD. Paroxysmal atrial fibrillation. TREATMENTS (per H&P/cardiac cath) Left heart cath with PCI/CORNELL of LAD 09/16. Subcu. Lovenox/Heparin. . Continue Aspirin and Plavix. (This form is maintained as a part of the permanent medical record) 2014 [employer]. All Rights Reserved Leyda [email or web address] [phone] MTDD
== END 2017-09-17 14:35 | disposition home or self-care (01) | DRG 246 ==
LOC: ERS 09:35 → 2NO 11:46
PROVIDERS: ADMIT Internal Medicine; ATTEND Internal Medicine
PROC: 027034Z Dilation of Coronary Artery, One Artery with Drug-eluting Intraluminal Device, Percutaneous Approach (ICD-10-PCS; principal; 2017-09-16)
PROC: 4A023N7 Measurement of Cardiac Sampling and Pressure, Left Heart, Percutaneous Approach (ICD-10-PCS; 2017-09-16)
PROC: B2111ZZ Fluoroscopy of Multiple Coronary Arteries using Low Osmolar Contrast (ICD-10-PCS; 2017-09-16)
PROC: B2151ZZ Fluoroscopy of Left Heart using Low Osmolar Contrast (ICD-10-PCS; 2017-09-16)
DX: I21.4 Non-ST elevation (NSTEMI) myocardial infarction (principal); I50.31 Acute diastolic (congestive) heart failure; I11.0 Hypertensive heart disease with heart failure; I48.0 Paroxysmal atrial fibrillation; I25.10 Atherosclerotic heart disease of native coronary artery without angina pectoris; N40.0 Benign prostatic hyperplasia without lower urinary tract symptoms; E78.00 Pure hypercholesterolemia, unspecified; Z85.72 Personal history of non-Hodgkin lymphomas; Z92.21 Personal history of antineoplastic chemotherapy; Z95.0 Presence of cardiac pacemaker
CPT/HCPCS: 36415; 71045; 76942; 80048; 80053; 80061; 82553; 82565; 83880; 84484; 85025; 85347; 85610; 85730; 90471; 90670; 92928; 93005; 93010; 93306; 93458; 93926; 94760; 96361; 96374; A4216; C1769; C1874; C1887; C9600; G0009; G8978-GP-CK; G8979-GP-CJ; J0360; J1644; J1650; J1940; J2001; J3010

== ENCOUNTER 2018-03-18 23:19 | Inpatient (IN) | payer MEDICARE, BC, OTHER ==
--- NOTE | 2018-03-18 23:56 | RAD ---
AP VIEW CHEST: 03/18/18 HISTORY: Shortness of breath. AP view chest obtained on 03/18/18. Comparison made to previous exam from 09/13/17. AP view chest demonstrates a right jugular Mediport catheter in place. There is a dual lead intracardiac pacing device. Marked cardiomegaly is seen. There is ectasia and ca lcification of the aorta. No evidence of effusions, pneumonia, or pneumothorax seen. IMPRESSION: Cardiomegaly. Radiographic appearance of the chest is stable and unchanged since the previous exam fr om 09/13/17. POS: [facility]
[2018-03-19 00:02] LABS: Hemoglobin 11.7 g/dL (14.0-18.0); Mean Corpuscular HGB CONC 32.5 g/dL (32.0-36.0); Mean Corpuscular Hemoglobin 28.4 pg (27.0-31.0); Mean Corpuscular Volume 87.5 fL (78.0-98.0); Mean Platelet Volume 10.4 fL (7.4-10.4); Platelet Count 157 thou/uL (130-400); RBC Distribution Width 14.9 % (11.5-14.5); Red Blood Cell (RBC) Count 4.13 mill/uL (4.70-6.10); White Blood Cell (WBC) Count 6.2 thou/uL (4.8-10.8)
[2018-03-19 00:24] LABS: ALT (SGPT) 18 U/L (8-55); AST (SGOT) 26 U/L (5-34); Albumin 3.9 g/dL (3.4-4.8); Alkaline Phosphatase 92 U/L (40-150); Anion Gap 14 mmol/L (10-20); BUN (Urea Nitrogen) 29 mg/dL (8.4-25.7); Bilirubin, Total 0.5 mg/dL (0.2-1.2); Calc. Creatinine Clearance 0 mL/min (70-130); Calcium 9.3 mg/dL (7.8-10.44); Carbon Dioxide 23 mmol/L (23-31); Chloride 110 mmol/L (98-107); Estimated GFR-MDRD 58; Globulin 3.1 g/dL (2.4-3.5); Glucose 89 mg/dL (83-110); Potassium 4.8 mmol/L (3.5-5.1); Sodium 142 mmol/L (136-145)
[2018-03-19 00:26] LABS: CKMB 2.5 ng/mL (0-6.6); Troponin I 0.056 ng/mL (< 0.028)
[2018-03-19 00:31] LABS: Band 2 % (5-11); Eosinophils 2 % (0-10); Hypochromia SLIGHT = 6-15 cells (100X) (0-5/hpf); Lymphocytes 11 % (21-51); MDiff Complete? YES; Monocytes 9 % (0-10); Neutrophil 76 % (42-75); PLT Morphology Comment Appears Adequate
[2018-03-19] MEDS ORDERED: Nitroglycerin 2% Ointment 1 INCH/1 GM Packet ONE (00:35)
[2018-03-19] MEDS ORDERED: Nitroglycerin 0.4 MG TAB (25 Tab Bottle) ONE (00:35)
[2018-03-19] MEDS ORDERED: Nitroglycerin 50 MG/250 ML BOT 250 ML ONE (01:05)
[2018-03-19] MEDS ORDERED: Furosemide 40 MG/4 ML VIAL ONE (01:05)
[2018-03-19] MEDS ORDERED: Enoxaparin Sodium 60 MG/0.6 ML SYRINGE ONE (01:05)
[2018-03-19 03:27] LABS: Troponin I 0.083 ng/mL (< 0.028)
[2018-03-19] MEDS ORDERED: Nitroglycerin 50 MG/250 ML BOT 250 ML IVPB PRN (03:41)
[2018-03-19] MEDS ORDERED: Ondansetron HCl/PF 4 MG/2 ML Vial IVP PRN (04:23)
[2018-03-19] MEDS ORDERED: Bisacodyl 5 MG TAB PO PRN (04:23)
[2018-03-19] MEDS ORDERED: Acetaminophen 650 MG Suppository PR PRN (04:23)
[2018-03-19 04:26] VITALS: BMI 21.3
--- NOTE | 2018-03-19 04:51 | HP ---
CHIEF COMPLAINT: Shortness of breath. HISTORY OF PRESENT ILLNESS: Patient is an 87-year-old pleasant male with past medical history of lym phoma status post chemotherapy, diastolic heart failure, paroxysmal atrial fibrillation, coronary art crystal disease status post pacemaker, hypertension presenting with shortness of breath, which has been o ngoing for 2 days now. Per patient, his shortness of breath gets worse with exertion and also even w hen he is at rest, he gets this shortness of breath, but it gets worse with exertion. Patient states that he cannot lie flat and wakes up at night because of shortness of breath. Patient has had this history of shortness of breath and chest tightness as well in the past. Patient was recently here in the hospital on 09/17/2017 for a similar episode of chest tightness and shortness of breath. At yunior t time, an echo was done and echocardiogram showed the patient has an ejection fraction of 50%-55% an d patient was also treated for possible NSTEMI. Currently, patient describes his chest tightness as being gradual and symptoms, and he has associated dyspnea with exertion and also with rest. Otherwis e, patient denies any fever, chills, headaches, nausea, vomiting. REVIEW OF SYSTEMS: Positive for shortness of breath, chest tightness, otherwise as documented in the HPI. All other systems were reviewed and are negative. PAST MEDICAL HISTORY: Refer to HPI. FAMILY HISTORY: Reviewed and noncontributory. PAST SURGICAL HISTORY: Pacemaker, appendectomy, and MediPort. PSYCHIATRIC HISTORY: Unknown. SOCIAL HISTORY: Patient denies alcohol use, denies any illicit drug use, and denies any smoking hist ory. ALLERGIES: No known drug allergies. CURRENT MEDICATIONS: Unknown. Patient does not know his medications. PHYSICAL EXAMINATION: VITAL SIGNS: Blood pressure in the ED 203/96, pulse 79, respiratory rate 18, temperature 98.4. GENERAL: Patient is lying in bed, speaking in full sentences, does not appear to be in any acute dis tress. Alert and oriented x3. HEENT: Normocephalic, atraumatic. Pupils are equally round and reactive to light. Extraocular move ments are intact. No scleral icterus. NECK: Supple, no JVD. Trachea is midline. LUNGS: Clear to auscultation bilaterally. No wheezing, no rales. No rhonchi is appreciated. CARDIOVASCULAR: Patient has a 3/6 systolic murmur, regular rate and rhythm. Positive S1, S2. ABDOMEN: Soft, nontender, nondistended, positive bowel sounds. No distention, no masses. EXTREMITIES: Upper extremity, 5/5 upper extremity strength and 5/5 lower extremity strength. Good p ulses bilaterally at the upper and lower extremities. NEUROLOGIC: Cranial nerves II-XII grossly intact. No focal neurologic deficits noted. SKIN: Warm, dry, and intact. PSYCHIATRIC: Normal affect. Alert and oriented x3. IMAGING: EKG shows PACs with left ventricular hypertrophy, inferior infarct, age undetermined. EMERGENCY DEPARTMENT COURSE: Patient was given Lovenox, furosemide injection, nitro drip, aspirin, n itropatch, and patient has been admitted to ICU. LABORATORY DATA: WBC 6.2, hemoglobin 11.7, hematocrit 36.1, platelet 157. Sodium 142, potassium 4.8 , chloride 110, carbon dioxide 23, anion gap of 14, BUN is 29, creatinine is 1.19. Troponin 0.056 in creased to 0.083. BNP is 1205.9. ASSESSMENT AND PLAN: This is an 87-year-old male being admitted for hypertensive emergency. Patient has an end-organ damage troponins. At this point, we have started IV drip. We will allow for permissive hypertension to keep blood pressure systolic of 180s. We are admitting patient in the U and we will monitor the patient's blood pressure closely. We will do neuro checks. Seizure precau tions. 1. Non-ST elevation myocardial infarction. Patient has been started on therapeutic Lovenox. We pardeep l continue this. We will consult Cardiology. We will follow up per Cardiology's recommendations. 2. Diastolic heart failure. Patient has ejection fraction of 50%-55%. At this point, we will follo w up with Cardiology regarding their recommendation. 3. History of lymphoma, status post chemotherapy, currently stable. We will continue patient on cur rent management. 4. Hypertension. We will continue nitro drip and we will manage patient's blood pressure. 5. Diastolic heart failure. Cardiology has been consulted. We will follow up with Cardiology. 6. Coronary artery disease. We will follow up with patient's pharmacy regarding his home medication s. Patient does not know his medications. 7. Status post pacemaker. Currently, patient is having some PACs. Cardiology is on consult. We wi ll follow up with their recommendations. 8. Deep venous thrombosis, gastrointestinal prophylaxis. Patient is on Lovenox therapeutic.
[2018-03-19] MEDS ORDERED: Furosemide 40 MG/4 ML VIAL SLOW IVP SCH (06:00)
[2018-03-19 06:31] LABS: Troponin I 0.081 ng/mL (< 0.028)
--- NOTE | 2018-03-19 07:11 | PDOC.PULCN ---
<Esther Carlin - Last Filed: 03/19/18 12:08> Pulmonology Consult: HPI - Date of Consult Date: 03/19/18 Time: 09:15 - Consult Details Reason for Consult: ICU Admission Requesting Physician: Dr. Claus Izquierdo - History of Present Illness HPI: MOUNIKA CARLTON is a 87 year-old M with PMH of HTN, CAD, pAfib, and diastolic dysfunction presented to the ED for SOB and orthopnea. He was found to have an intial blood pressure of 203/96. He was given IV Lasix, started on a Nitro drip , and place in the ICU. Patient reports he has not been taking his home lasix due to the irritation of having to urinate frequently. He reports compliance on other medication although I am not sure of this as he does not know his home medications. 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 Overnight, he has had multiple PVC's and some Afib on the laboratory monitor. Otherwise, he reports feeling much improved. He follows regularly with Dr. Swain for cardiology. Pulmonology Consult: ROS - Review of Systems All systems: reviewed and no additional remarkable complaints except as stated Cardiovascular: orthopnea. negative: chest pain, palpitations, edema Respiratory: negative: congestion, cough, short of breath Pulmonology Consult: PMH Source: patient Past Medical History: HTN, Lymphoma s/p chemo, HFpEF, paroxysmal Afib, CAD s/p pacemaker - Family History Family history: reviewed and not pertinent - Social History Smoking Status: Never smoker Alcohol Use: none Drug Use History: none Living Situation: Pulmonology Consult: Meds - Medications MAR Reviewed: Yes Medications: Current Medications Acetaminophen (Tylenol) 650 mg PO Q4H PRN PRN Reason: Headache/Fever or Pain Acetaminophen (Tylenol) 650 mg MI Q4H PRN PRN Reason: Headache/Fever or Pain Bisacodyl (Dulcolax) 10 mg PO DAILYPRN PRN PRN Reason: Constipation Enoxaparin Sodium (Lovenox) 60 mg SC 0900,2100 PERLA Stop: 03/19/18 12:40 Famotidine (Pepcid) 20 mg SLOW IVP DAILY PERLA Furosemide (Lasix) 40 mg SLOW IVP Q8HR PERLA Stop: 03/19/18 12:40 Last Admin: 03/19/18 06:44 Dose: 40 mg Nitroglycerin/Dextrose (Nitroglycerin 50 Mg/250 Ml Bot) 250 mls @ 0 mls/hr IVPB INF PRN; Protocol PRN Reason: TO KEEP SBP 160-180 Stop: 03/19/18 12:40 Ondansetron HCl (Zofran) 4 mg IVP Q6H PRN PRN Reason: Nausea/Vomiting Sodium Chloride (Flush - Normal Saline) 10 ml IVF Q12HR PERLA Sodium Chloride (Flush - Normal Saline) 10 ml IVF PRN PRN PRN Reason: Saline Flush - Allergies Allergies/Adverse Reactions: Allergies Allergy/AdvReac Type Severity Reaction Status Date / Time No Known Drug Allergies Allergy Verified 09/13/17 13:09 Pulmonology Consult: PE - Physical Exam Constitutional: NAD HEENT: PERRLA, moist MMs Neck: no nodes, no JVD Cardiovascular: no significant murmur Deviation from normal: occasional PVC and PAC, irregularly irregular rhythm Respiratory: rhonchi. negative: respiratory distress Focused Respiratory Location: rhonchi: Lower, Left, Right (mild rhonchi at bases ) Gastrointestinal: soft, non-tender, no distention, positive bowel sounds Musculoskeletal: no edema, pulses present Neurological: non-focal, normal sensation, moves all 4 limbs Psychiatric: normal affect, A&O x 3 Skin: normal turgor Pulmonology Consult: Results - Labs Result Diagrams: 03/18/18 23:56 03/18/18 23:56 - Radiology Interpretation Chest x-ray Status: image reviewed by me, report reviewed by me Additional comments: Cardiomegaly. No pulmonary edema noted. Pulmonology Consult: A/P - Problem (1) Hypertensive emergency Current Visit: Yes Code(s): I16.1 - HYPERTENSIVE EMERGENCY Status: Acute (2) Diastolic heart failure Current Visit: Yes Code(s): I50.30 - UNSPECIFIED DIASTOLIC (CONGESTIVE) HEART FAILURE Status: Acute (3) CAD (coronary artery disease) Current Visit: Yes Code(s): I25.10 - ATHSCL HEART DISEASE OF [place] CORONARY ARTERY W/O ANG PCTRS Status: Acute (4) Poor compliance with medication Current Visit: Yes Code(s): Z91.14 - PATIENT'S OTHER NONCOMPLIANCE WITH MEDICATION REGIMEN Status: Acute (5) Paroxysmal A-fib Current Visit: Yes Code(s): I48.0 - PAROXYSMAL ATRIAL FIBRILLATION Status: Acute - Time Time: 50% of the time was spent in coordination of care (as documented) at patient's floor/unit and/or counseling patient. Time with Patient: greater than 70 minutes - Plan Plan: Assessment: 1. HTN Emergency 2. Heart Failure with reduced Ejection fraction 3. CAD 4. paroxysmal Afib 5. Poor Medication Compliance Plan: 1. Start home medications and transition off the Nitro drip. Likely elevated pressure caused decreased cardiac output causing SOB. Will transfer him to telemetry once the drip is off. 2. Discussed importance of medication compliance and consulted CM for home health with nursing services to help manage his medications. 3. Continue with medications per Dr. Swain recommendations. <Nikita Lawrence M - Last Filed: 03/20/18 08:26> Pulmonology Consult: HPI - History of Present Illness HPI: BIANKAMOUNIKA WEBER is a 87 year-old M Pulmonology Consult: Meds - Medications Medications: Current Medications Acetaminophen (Tylenol) 650 mg PO Q4H PRN PRN Reason: Headache/Fever or Pain Last Admin: 03/19/18 21:24 Dose: 650 mg Acetaminophen (Tylenol) 650 mg MI Q4H PRN PRN Reason: Headache/Fever or Pain Amiodarone HCl (Cordarone) 200 mg PO TID [facility] Last Admin: 03/19/18 21:25 Dose: 200 mg Amlodipine Besylate (Norvasc) 5 mg PO DAILY [facility] Last Admin: 03/19/18 10:24 Dose: 5 mg Aspirin (Ecotrin) 81 mg PO DAILY [facility] Atorvastatin Calcium (Lipitor) 40 mg PO HS [facility] Last Admin: 03/19/18 21:24 Dose: 40 mg Bisacodyl (Dulcolax) 10 mg PO DAILYPRN PRN PRN Reason: Constipation Carvedilol (Coreg) 12.5 mg PO BID-[facility] Last Admin: 03/19/18 16:00 Dose: 12.5 mg Famotidine (Pepcid) 20 mg PO DAILY [facility] Losartan Potassium (Cozaar) 100 mg PO DAILY [facility] Last Admin: 09/20/18 10:03 Dose: 100 mg Ondansetron HCl (Zofran) 4 mg IVP Q6H PRN PRN Reason: Nausea/Vomiting Sodium Chloride (Flush - Normal Saline) 10 ml IVF Q12HR [facility] Last Admin: 03/19/18 21:24 Dose: 10 ml Sodium Chloride (Flush - Normal Saline) 10 ml IVF PRN PRN PRN Reason: Saline Flush Spironolactone (Aldactone) 25 mg PO QAM-WM PERLA Ticagrelor (Brilinta) 90 mg PO BID [facility] Last Admin: 03/19/18 21:24 Dose: 90 mg Pulmonology Consult: Results - Labs Result Diagrams: 03/20/18 06:01 03/20/18 06:01 Pulmonology Consult: A/P - Time Time: 50% of the time was spent in coordination of care (as documented) at patient's floor/unit and/or counseling patient. Attending Addendum - Attending Addendum Date/Time: 03/19/18 1200 I personally evaluated the patient and discussed the management with Dr. Carlin I agree with the History, Examination, Assessment and Plan documented above with any addition or exceptions noted below. 70 minutes have been devoted to this patient in various activities. I personally reviewed all imaging studies and laboratory data noted within this document. For fifty percent of this time, I was interacting with the patient at the bedside or coordinating care with the care team. For the remainder of the time I was immediately available to the patient in the hospital unit.
[2018-03-19] MEDS ORDERED: Carvedilol 6.25 MG TAB PO SCH ×2 (08:00→10:15)
[2018-03-19] MEDS ORDERED: Famotidine/PF 20 mg/2ml Vial SLOW IVP SCH (09:00)
[2018-03-19] MEDS ORDERED: Clopidogrel Bisulfate 300 MG TAB PO SCH (09:00)
[2018-03-19] MEDS ORDERED: Enoxaparin Sodium 60 MG/0.6 ML SYRINGE SC SCH (09:00)
[2018-03-19] MEDS ORDERED: Amlodipine 5 MG TAB PO SCH (09:00)
[2018-03-19] MEDS ORDERED: Clopidogrel Bisulfate 75 MG TAB PO SCH (09:00)
[2018-03-19] MEDS ORDERED: TICAGRELOR 90 MG TABLET PO SCH (10:00)
[2018-03-19] MEDS: Losartan 25 MG TAB PO SCH (10:03)
[2018-03-19] MEDS: Amiodarone 200 MG TAB PO SCH ×3 (10:03→21:25)
[2018-03-19] MEDS ORDERED: Spironolactone 25 MG TAB PO SCH (10:15)
--- NOTE | 2018-03-19 10:51 | RAD ---
PORTABLE CHEST: Date: 03/19/18 HISTORY: Dyspnea. FINDINGS: Heart size is upper limits of normal. Pacemaker is present. Right-sided MediPort line is unchanged in position. Lungs remain clear of infiltrates. IMPRESSION: Stable exam. POS: BEL
--- NOTE | 2018-03-19 11:14 | CON ---
DATE OF CONSULTATION: 03/19/2018 REASON FOR CONSULTATION: Shortness of breath, diastolic congestive heart failure. HISTORY OF PRESENT ILLNESS: Mr. Victorino Callaway is a pleasant 87-year-old man. He has a history of vanessa nary artery disease and hypertension. The patient also has diastolic dysfunction. He said he stoppe d taking his furosemide because he did not like that made him urinate too much. [facility] with shortness of breath, found to be extremely hypertensive with blood pressure systolic o nel 200. He was given furosemide and intravenous nitroglycerin. The patient is feeling better now, resting comfortably now. MEDICATIONS: The patient was very unsure about any of his medicines. He said he was not taking furo semide. "He has not taken the other ones." He does not know what they were. The listed medicines i ncluded amlodipine, ticagrelor, carvedilol, spironolactone, tamsulosin, digoxin, aspirin. ALLERGIES: None known. SOCIAL HISTORY: He has a who has been very ill. He recently had a transcutaneous aortic valve replacement. PAST MEDICAL HISTORY: Hypertension, coronary artery disease. SOCIAL HISTORY: He does not smoke currently. He does have a remote history of smoking in the past. FAMILY HISTORY: Noncontributory. REVIEW OF SYSTEMS: CONSTITUTIONAL: No significant weight gain or loss. VISION: No changes. HEARI NG: No changes. PULMONARY: No cough or wheezing. GASTROINTESTINAL: No nausea, vomiting, diarrhea . SKIN: No rashes. NEUROLOGIC: No unilateral weakness or numbness. PSYCHIATRIC: No unusual depr ession or anxiety. PHYSICAL EXAMINATION: GENERAL: A pleasant elderly gentleman, alert and oriented. VITAL SIGNS: Blood pressure is still high, 150 systolic. He is off to an IV nitro now. NECK: Neck veins normal. Carotid normal upstrokes. LUNGS: Clear. CARDIAC: Normal S1, normal S2. There is no murmur, rub or gallop. ABDOMEN: Soft, nontender. EXTREMITIES: No clubbing or cyanosis. There is no edema. IMAGING DATA: EKG does not show any acute changes. Chest x-ray shows no evidence of pulmonary vascu lar congestion and a dual chamber pacemaker is in place. PERTINENT LABORATORY: His troponin 0.083, probably demand ischemia. BNP 1205. Most recent echocard iogram showed ejection fraction 50%-55%, diastolic dysfunction. ASSESSMENT: 1. Episodes of diastolic dysfunction. 2. Hypertension. 3. Coronary artery disease. The patient did have stenting done of his LAD. He did have multiple ar eas of stenosis in the LAD. He had a 95% proximal lesion stented with 3.0 x 16 stent post-dilated to 3.25 mm. The mid and distal LAD also had stenosis those were not stented. There were not felt to b e appropriate for stent implantation of the vessels. Circumflex, no obstructive stenosis, right vanessa nary 60% lesion. CONCLUSIONS: 1. Episode of diastolic congestive heart failure. 2. Hypertension. 3. Some element of noncompliance is unclear how much of his medicines he is actually taking. PLAN: 1. Resume home medicines. 2. Okay to move out to telemetry. 3. We will review patient's previous cardiac catheterization and we will follow with you. 4. He also had some nonsustained V-tach. We will give amiodarone today, probably stop tomorrow if h e is stable.
[2018-03-19] MEDS: Carvedilol 6.25 MG TAB PO SCH (16:00)
[2018-03-19] MEDS: Acetaminophen 325 MG TAB PO PRN (21:24)
[2018-03-19] MEDS: TICAGRELOR 90 MG TABLET PO SCH (21:24)
[2018-03-19] MEDS: Atorvastatin Calcium 40 MG TAB PO SCH (21:24)
[2018-03-20 06:15] LABS: #Eosinphils 0.1 thou/uL (0.0-0.7); #Lymphocytes 0.8 thou/uL (1.20-3.40); #Monocytes 0.6 thou/uL (0.11-0.59); %Basophils 0.3 % (0.0-1.0); %Eosinophils 1.6 % (0.0-10.0); %Lymphocytes 14.1 % (21.0-51.0); %Monocytes 10.5 % (0.0-10.0); %Neutrophils 73.5 % (42.0-75.0); Hemoglobin 12.1 g/dL (14.0-18.0); Mean Corpuscular HGB CONC 32.1 g/dL (32.0-36.0); Mean Corpuscular Hemoglobin 28.1 pg (27.0-31.0); Mean Corpuscular Volume 87.5 fL (78.0-98.0); Mean Platelet Volume 9.6 fL (7.4-10.4); Platelet Count 163 thou/uL (130-400); RBC Distribution Width 14.8 % (11.5-14.5); Red Blood Cell (RBC) Count 4.31 mill/uL (4.70-6.10); White Blood Cell (WBC) Count 5.4 thou/uL (4.8-10.8)
[2018-03-20 06:31] LABS: Anion Gap 15 mmol/L (10-20); BUN (Urea Nitrogen) 35 mg/dL (8.4-25.7); Calc. Creatinine Clearance 35 mL/min (70-130); Calcium 9.5 mg/dL (7.8-10.44); Carbon Dioxide 29 mmol/L (23-31); Chloride 102 mmol/L (98-107); Estimated GFR-MDRD 49; Glucose 118 mg/dL (83-110); Potassium 3.5 mmol/L (3.5-5.1); Sodium 142 mmol/L (136-145)
[2018-03-20] MEDS ORDERED: Spironolactone 25 MG TAB PO SCH (08:00)
[2018-03-20] MEDS ORDERED: Potassium Chloride 20 MEQ TAB PO SCH (08:45)
[2018-03-20] MEDS ORDERED: Torsemide 20 MG TAB PO SCH (09:00)
--- NOTE | 2018-03-20 09:14 | PRG ---
DATE OF SERVICE: 03/20/2018 Mr. Callaway states he is feeling much better, no complaints. He is not keeping the I&Os, he is urinating in the toilet. PHYSICAL EXAMINATION: VITAL SIGNS: Blood pressure 155/66, pulse 66 regular. LUNGS: Clear. CARDIAC: Normal S1, normal S2. ABDOMEN: Soft, nontender. EXTREMITIES: There is no edema. ASSESSMENT: 1. Congestive heart failure, diastolic, improved. 2. Worsening of kidney function after diuresis, especially with spironolactone. That was on his lis t at home, but he said he has not been taking it lately, will stop the spironolactone. 3. Hypokalemia. Potassium 3.5. 4. Increased troponin level, looks like demand ischemia. 5. Coronary artery disease. A stent in the proximal LAD, but there is also mid and distal LAD dise ase, not an ideal for stenting, suboptimal for stenting. 6. Episodes of nonsustained ventricular tachycardia, resolved. 7. Previous pacemaker. 8. Hypertension. PLAN: 1. Increase amlodipine to 10 mg a day. 2. Amiodarone reduced to 200 mg once a day. 3. Aspirin. 4. Losartan. 5. Potassium. 6. Torsemide. 7. Ticagrelor. 8. Atorvastatin. 9. If he is doing well, okay to be released home tomorrow and to see me in a month.
--- NOTE | 2018-03-20 09:23 | PQF ---
MOUNIKA CARLTON NAVEEN PETER DO [id number] CCU-[id number] CLINICAL DOCUMENTATION IMPROVEMENT CLARIFICATION FORM: ICD-10 Updated PLEASE DO AN ADDENDUM TO THE PROGRESS NOTE WITH ANY DOCUMENTATION UPDATES OR ADDITIONS AND CARRY THROUGH TO DC SUMMARY. THANK YOU. DATE: 03-19-18 ATTN: DR. RODRIGUES Please exercise your independent, professional judgment in responding to the clarification form. Clinical indicators are provided on the bottom of this form for your review Please check appropriate box(s): AMI TYPE: [ ] NSTEMI [ ] AMI Type II [ x ] Demand Ischemia [ ] Other diagnosis [ ] Unable to determine In addition, please specify: Present on Admission (POA): [ x ] Yes [ ] No [ ] Unable to determine CLINICAL INDICATORS - SIGNS / SYMPTOMS / LABS ED: HYPERTENSIVE CRISIS; CHF EXACERBATION H&P: NSTEMI; PT HAS END ORGAN DAMAGE ____ TROPONINS 03-19 ([facility]): EPISODE OF DIASTOLIC CHF; TROPONIN 0.083, PROBABLY DEMAND ISCHEMIA; BNP 1205; MOST RECENT ECHO SHOWED EF 50-55%, DIASTOLIC DYSFUNCTION 03-19 ([facility]) PULM CONSULT: LIKELY ELEVATED PRESSURE CAUSED DECREASED CARDIAC OUTPUT CAUSING SOB. LABS: TROPONIN I 03-18 @ 2356 0.056 - @ 0256 0.083 03-19 @ 0548 0.081 RISKS: H&P: DIASTOLIC CHF; HTN; CAD TREATMENTS: ED: O2; NITRO DRIP; LASIX 03-19 CARDIO CONSULT 03-19 PULMONARY CONSULT THANK YOU, SILVIA (This form is maintained as a part of the permanent medical record) 2014 [employer]. All Rights Reserved Silvia Nation, RN, BS [email or web address] Cell [facility]
--- NOTE | 2018-03-20 09:25 | PQF ---
MOUNIKA CARLTON NAVEEN PETER DO [id number] CCU-[id number] CLINICAL DOCUMENTATION IMPROVEMENT CLARIFICATION FORM: ICD-10 Updated PLEASE DO AN ADDENDUM TO THE PROGRESS NOTE WITH ANY DOCUMENTATION UPDATES OR ADDITIONS AND CARRY THROUGH TO DC SUMMARY. THANK YOU. DATE: 03-19-18 ATTN: DR. RODRIGUES Please exercise your independent, professional judgment in responding to the clarification form. Clinical indicators are provided on the bottom of this form for your review Please check appropriate box(s): [ ] Acute Diastolic Heart Failure [ x ] Acute on Chronic Diastolic Heart Failure [ ] Chronic Diastolic Heart Failure [ ] Other diagnosis [ ] Unable to determine In addition, please specify: Present on Admission (POA): [ x ] Yes [ ] No [ ] Unable to determine For continuity of documentation, please document condition throughout progress notes and discharge summary. Thank You. CLINICAL INDICATORS - SIGNS / SYMPTOMS / LABS ED: HYPERTENSIVE CRISIS; CHF EXACERBATION 03-19 ([facility]) EPISODE OF DIASTOLIC CHF; RECENT ECHO EF 50-55% ; DIASTOLIC DYSFUNCTION 03-19 ([facility]): LIKELY ELEVATED PRESSURE CAUSED DECREASED CARDIAC OUTPUT CAUSING SOB LABS: 03-18 BNP 1205.9 RISKS: H&P: CAD; CHF; HTN TREATMENTS: ED: LASIX 80MG IV MAR: LASIX 40MG IV 03-19 ALDACTONE 03-19 Thank you, Silvia (This form is maintained as a part of the permanent medical record) 2014 [employer]. All Rights Reserved Silvia Nation RN, BS [email or web address] Cell [facility]
[2018-03-20] MEDS: Amiodarone 200 MG TAB PO SCH (09:32)
[2018-03-20] MEDS: Aspirin 81 mg Enteric Coated Tablet PO SCH (09:33)
[2018-03-20] MEDS: Famotidine 20 MG TAB PO SCH (09:34)
[2018-03-20] MEDS: Losartan 25 MG TAB PO SCH (09:35)
[2018-03-20] MEDS: Carvedilol 6.25 MG TAB PO SCH ×2 (09:36→18:29)
[2018-03-20] MEDS: TICAGRELOR 90 MG TABLET PO SCH ×2 (09:37→20:40)
[2018-03-20] MEDS: Amlodipine 10 MG TAB PO SCH (09:38)
--- NOTE | 2018-03-20 13:13 | PRG ---
DATE OF SERVICE: 03/20/2018 SERVICE: Pulmonary Medicine. INTERVAL HISTORY: The patient is doing fine from a respiratory standpoint. He denies any current ch est pain, nausea, vomiting, fevers or chills. Otherwise, there has been no interval change to his co ndition. Blood pressures remain stable. Nursing reports no overnight events. PHYSICAL EXAMINATION: VITAL SIGNS: Afebrile, pulse 61, blood pressure 173/74, respirations 15, saturation 96% on room air. GENERAL: The patient is awake, alert, in no apparent distress. LUNGS: Decent air entry. There is no prolonged expiratory phase or wheezing present. HEART: Normal rate, regular. ABDOMEN: Soft, nontender, nondistended. Bowel sounds are positive. MUSCULOSKELETAL: No cyanosis or clubbing. There is no pitting in the bilateral lower extremities. NEUROLOGIC: Grossly nonfocal. LABORATORY DATA: WBC 5.4, hemoglobin 12.1, platelets 163,000. Creatinine 1.38 and gently up trendin g. Basic metabolic profile is otherwise unremarkable. Creatinine is down trending to 0.81. Previou s BNP 1200. ASSESSMENT: 1. Hypertensive emergency. 2. Chronic systolic heart failure. 3. Atrial fibrillation, paroxysmal. 4. Coronary artery disease. 5. Medication noncompliance. DISCUSSION AND PLAN: The patient's home medications have been restarted. At this point, the patient has no further requirements for inpatient Pulmonary or Critical Care opinion. I will sign off. Ple ase call with additional questions or concerns moving forward.
--- NOTE | 2018-03-20 14:32 | PDOC.PN ---
- Subjective Encounter Start Date: 03/20/18 Encounter Start Time: 14:30 Subjective: f/u for HTN urgency and acute/chronic diast CHF. Overall feeling better -: and less dyspnea. Receiving Torsemide, Amiodarone. - Objective Resuscitation Status: Resuscitation Status FULL:Full Resuscitation MAR Reviewed: Yes Vital Signs & Weight: Vital Signs (12 hours) Temp Pulse Resp BP BP Pulse Ox 03/20/18 12:00 98.2 F 61 15 173/74 H 96 03/20/18 09:38 72 155/75 H 03/20/18 09:36 155/75 H 03/20/18 08:00 94 L 03/20/18 07:55 97.9 F 66 16 155/66 H 94 L 03/20/18 04:00 98.3 F 60 20 147/67 H 98 Weight Weight 130 lb 12.8 oz Most Recent Monitor Data Heart Rate from ECG 71 NIBP 151/74 NIBP BP-Mean 99 Respiration from ECG 16 SpO2 97 I&O: 03/19/18 03/20/18 03/21/18 06:59 06:59 06:59 Intake Total 35.4 540 Output Total 1200 1350 Balance -1164.6 -810 Result Diagrams: 03/20/18 06:01 03/20/18 06:01 Additional Labs: Laboratory Tests 09/13/17 03/18/18 03/18/18 09:50 23:56 23:56 Hgb 11.7 L Creatinine 1.19 Troponin I B-Natriuretic Peptide 2738.0 H 03/18/18 03/18/18 03/19/18 23:56 23:56 02:56 Hgb Creatinine Troponin I 0.056 H 0.083 H B-Natriuretic Peptide 1205.9 H 03/19/18 05:48 Hgb Creatinine Troponin I 0.081 H B-Natriuretic Peptide EKG Reviewed by me: Yes (Tele - SR with occasional PVC's) Phys Exam - Physical Examination Constitutional: NAD HEENT: PERRLA, sclera anicteric, oral pharynx no lesions Neck: no nodes, no JVD, supple, full ROM Respiratory: no wheezing, no rales, no rhonchi, clear to auscultation bilateral S1, S2 Cardiovascular: RRR, no significant murmur, no rub, gallop Gastrointestinal: soft, non-tender, no distention, positive bowel sounds Musculoskeletal: no edema, pulses present Neurological: non-focal, normal sensation, moves all 4 limbs Psychiatric: normal affect, A&O x 3 Skin: no rash, normal turgor, cap refill <2 seconds Dx/Plan (1) Acute on chronic diastolic CHF (congestive heart failure) Code(s): I50.33 - ACUTE ON CHRONIC DIASTOLIC (CONGESTIVE) HEART FAILURE Status : Acute Comment: Continue Torsemide, serial I/O's, daily weight (2) Demand ischemia of myocardium Code(s): I24.8 - OTHER FORMS OF ACUTE ISCHEMIC HEART DISEASE Status: Chronic Comment: No acute intervention recommended, continue ASA/Brilinta (3) GIL[place]ERT (acute kidney injury) Code(s): N17.9 - ACUTE KIDNEY FAILURE, UNSPECIFIED Status: Acute Comment: Avoid nephrotoxic meds and limit contrast exposure, hold Spironolactone, repeat creatinine in am (4) Paroxysmal A-fib Code(s): I48.0 - PAROXYSMAL ATRIAL FIBRILLATION Status: Acute Comment: Amiodarone 200mg daily - Plan PT/OT, home health care social worker, out of bed/ambulate Stable overall -: OOB/ambulate -: Continue Torsemide -: Continue ASA/Brillinta -: AM lab: BMP * Likely home in 24h
[2018-03-20] MEDS: Atorvastatin Calcium 40 MG TAB PO SCH (20:40)
[2018-03-20] MEDS: Acetaminophen 325 MG TAB PO PRN (20:40)
[2018-03-20] MEDS ORDERED: Tamsulosin HCl 0.4 MG CAP PO SCH (21:00)
[2018-03-21 06:09] LABS: Anion Gap 13 mmol/L (10-20); BUN (Urea Nitrogen) 50 mg/dL (8.4-25.7); Calc. Creatinine Clearance 27 mL/min (70-130); Calcium 8.9 mg/dL (7.8-10.44); Carbon Dioxide 26 mmol/L (23-31); Chloride 106 mmol/L (98-107); Estimated GFR-MDRD 40; Glucose 97 mg/dL (83-110); Potassium 3.7 mmol/L (3.5-5.1); Sodium 141 mmol/L (136-145)
[2018-03-21 07:52] VITALS: BP 166/81; TEMP 97.7
[2018-03-21] MEDS ORDERED: Potassium Chloride 20 MEQ TAB PO SCH (08:00)
--- NOTE | 2018-03-21 08:19 | PDOC.CTH ---
Cardiology Progress Note - Subjective Patient without complaints. wants to go home to take care of . - Objective Vital Signs Temp Pulse Resp BP BP Pulse Ox 03/21/18 07:41 97.7 F 64 16 166/81 H 96 03/21/18 03:58 97.9 F 74 16 147/70 H 98 03/20/18 20:41 96 Weight 131 lb 1.6 oz 03/20/18 03/21/18 03/22/18 06:59 06:59 06:59 Intake Total 540 810 Output Total 1350 450 Balance -810 360 - Physical Examination General/Neuro: alert & oriented x3 Neck: no JVD present Lungs: CTA Heart: RRR Abdomen: NT/ND Extremities: other: (no edema) - Telemetry Telemetry Rhythm: AP-VS; SR 60s - Labs Result Diagrams: 03/20/18 06:01 03/21/18 05:40 Troponin/CKMB CK-MB (CK-2) 2.5 ng/mL (0-6.6) 03/18/18 23:56 Troponin I 0.081 ng/mL (< 0.028) H 03/19/18 05:48 - Assessment/Plan 1. SALAS 2. Acute on chronic diastolic CHF 3. NSVT 4. Paroxysmal AFib 5. s/p pacemaker 6. HTN Overall improved, but with worsening renal function. Patient wanting to go home today due to social issues/ as he is the primary caregiver. Held Demadex today. Probably ok for discharge if agreeable to repeat labs early next week. Still hypertensive, but medications can be adjusted as outpatient.
[2018-03-21] MEDS: Amiodarone 200 MG TAB PO SCH (09:35)
[2018-03-21] MEDS: Amlodipine 10 MG TAB PO SCH (09:35)
[2018-03-21] MEDS: Carvedilol 6.25 MG TAB PO SCH (09:36)
[2018-03-21] MEDS: Aspirin 81 mg Enteric Coated Tablet PO SCH (09:36)
[2018-03-21] MEDS: Famotidine 20 MG TAB PO SCH (09:36)
[2018-03-21] MEDS: Losartan 25 MG TAB PO SCH (09:36)
[2018-03-21] MEDS: TICAGRELOR 90 MG TABLET PO SCH (09:36)
--- NOTE | 2018-03-21 13:45 | DIS ---
DATE OF ADMISSION: 03/19/2018 DATE OF DISCHARGE: 03/21/2018 DISCHARGE DIAGNOSES: 1. Acute on chronic diastolic congestive heart failure. 2. Demand ischemia of the myocardium. 3. Acute kidney injury, iatrogenic. 4. Paroxysmal atrial fibrillation. 5. Nonsustained ventricular tachycardia. 6. Status post pacemaker placement. 7. Hypertension, labile. CONSULTATIONS: Dr. Swain with Cardiology Service. Dr. Lawrence with Pulmonology Service. PERTINENT LABORATORY DATA AND X-RAY FINDINGS: Creatinine ranged between 1.19-1.65, estimated GFR ran ged between 40-58, troponin I ranged between 0.056-0.083. BNP 1206, previously noted 2738 on 018. CBC showed a hemoglobin ranged between 11.7-12.1. Portable chest x-ray dated 03/19/2018 showed pacemaker in appropriate positioning. No acute infiltrate identified. HOSPITAL COURSE: The patient was initially admitted to the intermediate care unit after presenting w ith shortness of breath in the context of known diastolic congestive heart failure, atrial fibrillati on, coronary artery disease, and hypertension. Patient with last echocardiogram on 08/2017 showing p reserved ejection fraction of 50%-55% with diastolic dysfunction. The patient was also noted at the time of admission with hypertensive emergency and initiated on a nitroglycerin drip for blood pressur e management. The patient was evaluated by the cardiology service with adjustment to his chronic med ication regimen. The patient was also noted with nonsustained ventricular tachycardia with initiatio n of amiodarone. The patient did clinically improved with aggressive intervention in the intermediat e care unit and transitioned to the telemetry floor for further evaluation. Patient continued on miriam l therapy with aspirin and Brilinta due to prior history of cardiac stent placement. The patient ove rall clinically stabilized maintaining O2 saturation greater than 95% on room air. I have examined t he patient at the time of discharge and discussed the followup instructions. The patient verbalizes understanding and agreement and ready for discharge on 03/21/2018. DISCHARGE MEDICATIONS: 1. Enteric coated aspirin 81 mg 1 tab p.o. daily. 2. Lasix 20 mg 1 tab p.o. daily. 3. K-Dur 20 mEq p.o. daily. 4. Flomax 0.4 mg p.o. daily. 5. Amiodarone 200 mg p.o. daily, new prescription. 6. Amlodipine 10 mg p.o. daily, dose increased. 7. Lipitor 40 mg p.o. at bedtime, dose increased. 8. Coreg 12.5 mg p.o. b.i.d. 9. Digoxin 125 mcg p.o. daily. 10. Losartan 100 mg p.o. daily, new prescription. 11. Nitroglycerin 0.4 mg sublingually every 5 minutes p.r.n. chest pain. 12. Spironolactone 25 mg p.o. daily. 13. Brilinta 90 mg p.o. b.i.d. FOLLOWUP: The patient to follow up with his primary care provider, Dr. Bernard Ortiz within 7 days of discharge. The patient will follow up with Dr. Swain in 3-4 weeks after discharge. Patient will al so follow up with cardiac rehabilitation on an outpatient basis. Patient will follow up with the [facility]. CONDITION ON DISCHARGE: Stable. ACTIVITY: ad aimee. DIET: Heart healthy. SPECIAL INSTRUCTIONS: Recommend a basic metabolic profile on 03/23/2018 to monitor renal function. The patient will be followed at home with [facility]. CODE STATUS: FULL. DISPOSITION: Home, 03/21/2018 with [facility]. Total time preparing and coordinating discharge is 35 minutes.
== END 2018-03-21 11:41 | disposition home or self-care (01) | DRG 292 ==
LOC: ERS 23:19 → CCU 03-19 03:34 → 2NO 03-19 16:24
PROVIDERS: ADMIT Internal Medicine; ATTEND Internal Medicine
DX: I11.0 Hypertensive heart disease with heart failure (principal); I24.8 Other forms of acute ischemic heart disease; N17.9 Acute kidney failure, unspecified; I16.1 Hypertensive emergency; I50.33 Acute on chronic diastolic (congestive) heart failure; I48.0 Paroxysmal atrial fibrillation; R00.0 Tachycardia, unspecified; Z95.0 Presence of cardiac pacemaker; I25.10 Atherosclerotic heart disease of native coronary artery without angina pectoris; Z91.14 Patient's other noncompliance with medication regimen; E87.6 Hypokalemia
CPT/HCPCS: 36415; 71045; 80048; 80053; 82553; 83880; 84484; 85025; 93005; 93798; 96365; 96366; 96372; 96375; A4216; J1650; J1940; S0028

== ENCOUNTER 2018-06-14 18:09 | Emergency (ER) | payer MEDICARE, BC, OTHER ==
[2018-06-14 19:00] LABS: #Eosinphils 0.1 thou/uL (0.0-0.7); #Monocytes 0.5 thou/uL (0.11-0.59); #Neutrophils 2.7 thou/uL (1.40-6.50); %Basophils 0.8 % (0.0-1.0); %Lymphocytes 23.9 % (21.0-51.0); %Monocytes 11.5 % (0.0-10.0); %Neutrophils 61.8 % (42.0-75.0); Hemoglobin 8.7 g/dL (14.0-18.0); Mean Corpuscular HGB CONC 31.7 g/dL (32.0-36.0); Mean Corpuscular Hemoglobin 25.6 pg (27.0-31.0); Mean Corpuscular Volume 80.9 fL (78.0-98.0); Mean Platelet Volume 9.4 fL (7.4-10.4); Platelet Count 195 thou/uL (130-400); RBC Distribution Width 16.8 % (11.5-14.5); Red Blood Cell (RBC) Count 3.38 mill/uL (4.70-6.10); White Blood Cell (WBC) Count 4.3 thou/uL (4.8-10.8)
--- NOTE | 2018-06-14 19:07 | RAD ---
PORTABLE CHEST: History: Syncope. Comparison: 03-19-18 FINDINGS: Lung monreal are clear. Heart size is mildly prominent. Dual-lead pacemaker device is unchanged. Medip ort catheter is unchanged in position. Vascular markings are normal. IMPRESSION: Mild cardiomegaly. No acute lung process. No interval change. POS: [facility]
[2018-06-14 19:21] LABS: ALT (SGPT) 18 U/L (8-55); AST (SGOT) 17 U/L (5-34); Albumin 3.9 g/dL (3.4-4.8); Alkaline Phosphatase 85 U/L (40-150); Anion Gap 14 mmol/L (10-20); BUN (Urea Nitrogen) 34 mg/dL (8.4-25.7); Bilirubin, Total 0.4 mg/dL (0.2-1.2); CK (CPK) 41 U/L (30-200); Calc. Creatinine Clearance 0 mL/min (70-130); Calcium 9.4 mg/dL (7.8-10.44); Carbon Dioxide 22 mmol/L (23-31); Chloride 106 mmol/L (98-107); Estimated GFR-MDRD 40; Globulin 2.7 g/dL (2.4-3.5); Glucose 109 mg/dL (83-110); Potassium 4.2 mmol/L (3.5-5.1); Protein, Total 6.6 g/dL (5.8-8.1); Sodium 138 mmol/L (136-145)
[2018-06-14 19:23] LABS: Bilirubin Negative (Negative); Blood, Urine Negative (Negative); Clarity CLEAR (Clear); Glucose, Urine (Dipstick) Negative (Negative); Leukocyte Negative (Negative); Nitrite Negative (Negative); Protein, Urine (Dipstick) Negative (Neg-Trace); Specific Gravity, Urine 1.008 (1.002-1.036); Urobilinogen 0.2 mg/dL (0.2-1.0)
== END 2018-06-14 20:47 | disposition home or self-care (01) ==
LOC: ERS 18:09
DX: R55 Syncope and collapse (principal); D64.9 Anemia, unspecified; I11.0 Hypertensive heart disease with heart failure; I50.9 Heart failure, unspecified; E78.00 Pure hypercholesterolemia, unspecified; I48.91 Unspecified atrial fibrillation; I25.2 Old myocardial infarction; Z79.899 Other long term (current) drug therapy; Z86.73 Personal history of transient ischemic attack (TIA), and cerebral infarction without residual deficits; Z87.891 Personal history of nicotine dependence; Z79.82 Long term (current) use of aspirin
CPT/HCPCS: 36415; 71045; 80053; 81003; 82274; 82550; 83880; 84484; 85025; 93005

== ENCOUNTER 2018-06-16 15:24 | Emergency (ER) | payer MEDICARE, OTHER ==
[2018-06-16 16:04] LABS: #Eosinphils 0.1 thou/uL (0.0-0.7); #Lymphocytes 0.8 thou/uL (1.20-3.40); #Monocytes 0.4 thou/uL (0.11-0.59); #Neutrophils 2.7 thou/uL (1.40-6.50); %Basophils 0.3 % (0.0-1.0); %Eosinophils 1.4 % (0.0-10.0); %Lymphocytes 18.9 % (21.0-51.0); %Monocytes 11.2 % (0.0-10.0); %Neutrophils 68.3 % (42.0-75.0); Mean Corpuscular HGB CONC 31.9 g/dL (32.0-36.0); Mean Corpuscular Hemoglobin 25.8 pg (27.0-31.0); Mean Corpuscular Volume 81.1 fL (78.0-98.0); Mean Platelet Volume 9.6 fL (7.4-10.4); Platelet Count 188 thou/uL (130-400); RBC Distribution Width 16.9 % (11.5-14.5); Red Blood Cell (RBC) Count 3.49 mill/uL (4.70-6.10)
[2018-06-16 16:35] LABS: ALT (SGPT) 23 U/L (8-55); AST (SGOT) 31 U/L (5-34); Albumin 3.9 g/dL (3.4-4.8); Alkaline Phosphatase 90 U/L (40-150); Anion Gap 16 mmol/L (10-20); BUN (Urea Nitrogen) 45 mg/dL (8.4-25.7); Bilirubin, Total 0.4 mg/dL (0.2-1.2); Calc. Creatinine Clearance 0 mL/min (70-130); Carbon Dioxide 21 mmol/L (23-31); Chloride 104 mmol/L (98-107); Estimated GFR-MDRD 30; Globulin 3.2 g/dL (2.4-3.5); Glucose 124 mg/dL (83-110); Protein, Total 7.1 g/dL (5.8-8.1); Sodium 136 mmol/L (136-145)
--- NOTE | 2018-06-16 17:23 | RAD ---
CHEST ONE VIEW: HISTORY: Syncope. COMPARISON: Radiograph from two days prior. FINDINGS: The Port-A-Cath tip is similar. The dual-lead pacer is similar. Heart size is enlarged. No pneumot horax or large effusion. No acute osseous abnormality. IMPRESSION: No acute intrathoracic abnormality. Unchanged examination. POS: [facility]
--- NOTE | 2018-06-17 14:15 | EKG ---
Test Reason : Blood Pressure : / mmHG Vent. Rate : 076 BPM Atrial Rate : 076 BPM P-R Int : 226 ms QRS Dur : 110 ms QT Int : 440 ms P-R-T Axes : 000 008 076 degrees QTc Int : 495 ms Atrial-paced rhythm with prolonged AV conduction Left ventricular hypertrophy with repolarization abnormality Confirmed by SAMIR JIMENEZ DO ([id number]), society editor RUBIN MUNOZ ([id number]) on 06/17/2018 2:15:18 PM Referred By: Confirmed By:SAMIR JIMENEZ DO
== END 2018-06-16 17:31 | disposition home or self-care (01) ==
LOC: ERS 15:24
DX: I95.1 Orthostatic hypotension (principal); E86.0 Dehydration; I11.0 Hypertensive heart disease with heart failure; I50.9 Heart failure, unspecified; Z87.891 Personal history of nicotine dependence; Z79.899 Other long term (current) drug therapy
CPT/HCPCS: 36415; 71045; 80053; 84484; 85025; 93005

== ENCOUNTER 2018-09-24 13:26 | Emergency (ER) | payer MEDICARE, OTHER ==
[2018-09-24 14:05] LABS: Hemoglobin 8.3 g/dL (14.0-18.0); Mean Corpuscular HGB CONC 31.9 g/dL (32.0-36.0); Mean Corpuscular Hemoglobin 23.1 pg (27.0-31.0); Mean Corpuscular Volume 72.3 fL (78.0-98.0); Mean Platelet Volume 13.6 fL (7.4-10.4); Platelet Count 238 thou/uL (130-400); RBC Distribution Width 22.2 % (11.5-14.5); Red Blood Cell (RBC) Count 3.61 mill/uL (4.70-6.10); White Blood Cell (WBC) Count 4.2 thou/uL (4.8-10.8)
[2018-09-24 14:30] LABS: Bilirubin Negative (Negative); Blood, Urine Negative (Negative); Clarity CLEAR (Clear); Glucose, Urine (Dipstick) Negative (Negative); Leukocyte Trace (Negative); Nitrite Negative (Negative); Protein, Urine (Dipstick) Negative (Neg-Trace); Specific Gravity, Urine 1.008 (1.002-1.036); Urobilinogen 0.2 mg/dL (0.2-1.0); pH, Urine 6.5 (5.0-9.0)
[2018-09-24 14:31] LABS: Bacteria/HPF 1+ HPF (None Seen); Hyaline Casts/LPF 0-3 HYALINE CAST LPF (0-3 Hyaline); RBC/HPF None Seen HPF (0-3); Squamous Epithelial None Seen HPF (0-3); WBC/HPF 0-3 HPF (0-3)
[2018-09-24 14:36] LABS: #Eosinphils 0.1 thou/uL (0.0-0.7); #Lymphocytes 1.4 thou/uL (1.20-3.40); #Monocytes 0.4 thou/uL (0.11-0.59); #Neutrophils 2.3 thou/uL (1.40-6.50); %Basophils 0.8 % (0.0-1.0); %Eosinophils 1.8 % (0.0-10.0); %Lymphocytes 32.9 % (21.0-51.0); %Neutrophils 55.5 % (42.0-75.0); ALT (SGPT) 14 U/L (8-55); AST (SGOT) 23 U/L (5-34); Alkaline Phosphatase 70 U/L (40-150); Anion Gap 15 mmol/L (10-20); Anisocytosis SLIGHT = 6-15 cells (100X) (0-5/hpf); BUN (Urea Nitrogen) 31 mg/dL (8.4-25.7); Bilirubin, Total 0.4 mg/dL (0.2-1.2); CK (CPK) 42 U/L (30-200); Calc. Creatinine Clearance 0 mL/min (70-130); Calcium 9.4 mg/dL (7.8-10.44); Carbon Dioxide 24 mmol/L (23-31); Chloride 107 mmol/L (98-107); Elliptocytes SLIGHT = 2-5 cells (100X) (0-1/hpf); Estimated GFR-MDRD 47; Globulin 3.1 g/dL (2.4-3.5); Glucose 99 mg/dL (83-110); Hypochromia SLIGHT = 6-15 cells (100X) (0-5/hpf); Lipase 24 U/L (8-78); MDiff Complete? YES; Microcytosis SLIGHT = 6-15 cells (100X) (0-5/hpf); Platelet Morphology Comment Appears Adequate; Potassium 4.8 mmol/L (3.5-5.1); Protein, Total 7.1 g/dL (5.8-8.1); Sodium 141 mmol/L (136-145); Tear Drops SLIGHT = 2-5 cells (100X) (0-1/hpf)
== END 2018-09-24 15:43 | disposition home or self-care (01) ==
LOC: ERS 13:26
DX: R53.1 Weakness (principal); E86.0 Dehydration; I50.9 Heart failure, unspecified; I11.0 Hypertensive heart disease with heart failure; I48.91 Unspecified atrial fibrillation; F32.9 Major depressive disorder, single episode, unspecified; F17.290 Nicotine dependence, other tobacco product, uncomplicated; K50.90 Crohn's disease, unspecified, without complications
CPT/HCPCS: 80053; 81003; 81015; 82550; 83690; 84484; 85025; 93005; 96360

== ENCOUNTER 2018-11-07 06:12 | Observation (INO) | payer MEDICARE, OTHER ==
[2018-11-07 06:35] LABS: #Eosinphils 0.2 thou/uL (0.0-0.7); #Lymphocytes 0.9 thou/uL (1.20-3.40); #Monocytes 0.4 thou/uL (0.11-0.59); #Neutrophils 2.1 thou/uL (1.40-6.50); %Basophils 1.3 % (0.0-1.0); %Eosinophils 4.7 % (0.0-10.0); %Lymphocytes 25.7 % (21.0-51.0); %Monocytes 10.2 % (0.0-10.0); %Neutrophils 58.1 % (42.0-75.0); Hemoglobin 7.2 g/dL (14.0-18.0); Mean Corpuscular HGB CONC 30.3 g/dL (32.0-36.0); Mean Corpuscular Hemoglobin 22.6 pg (27.0-31.0); Mean Corpuscular Volume 74.8 fL (78.0-98.0); Mean Platelet Volume 10.8 fL (7.4-10.4); Platelet Count 213 thou/uL (130-400); RBC Distribution Width 18.1 % (11.5-14.5); Red Blood Cell (RBC) Count 3.19 mill/uL (4.70-6.10); White Blood Cell (WBC) Count 3.5 thou/uL (4.8-10.8)
[2018-11-07 06:44] LABS: Bilirubin Negative (Negative); Blood, Urine Negative (Negative); Clarity CLEAR (Clear); Glucose, Urine (Dipstick) Negative (Negative); Leukocyte Trace (Negative); Nitrite Negative (Negative); Protein, Urine (Dipstick) Negative (Neg-Trace); Specific Gravity, Urine 1.009 (1.002-1.036); Urobilinogen 0.2 mg/dL (0.2-1.0)
[2018-11-07 06:45] LABS: Bacteria/HPF 1+ HPF (None Seen); Hyaline Casts/LPF 0-3 HYALINE CAST LPF (0-3 Hyaline); Pathc Cast-AUWi Flag 0.13 (0-2.49); RBC/HPF 0-3 HPF (0-3); Squamous Epithelial 0-3 HPF (0-3)
[2018-11-07 06:58] LABS: ALT (SGPT) 15 U/L (8-55); AST (SGOT) 13 U/L (5-34); Albumin 4.1 g/dL (3.4-4.8); Alkaline Phosphatase 72 U/L (40-150); Anion Gap 13 mmol/L (10-20); BUN (Urea Nitrogen) 22 mg/dL (8.4-25.7); Bilirubin, Total 0.4 mg/dL (0.2-1.2); CK (CPK) 40 U/L (30-200); Calc. Creatinine Clearance 0 mL/min (70-130); Calcium 9.3 mg/dL (7.8-10.44); Carbon Dioxide 24 mmol/L (23-31); Chloride 108 mmol/L (98-107); Estimated GFR-MDRD 51; Globulin 2.4 g/dL (2.4-3.5); Glucose 112 mg/dL (83-110); Potassium 3.6 mmol/L (3.5-5.1); Protein, Total 6.5 g/dL (5.8-8.1); Sodium 141 mmol/L (136-145)
[2018-11-07 07:33] LABS: PTT 27.2 SEC (22.9-36.1); Prothrombin Time 13.2 SEC (12.0-14.7)
[2018-11-07 07:37] LABS: Iron 15 ug/dL (65-175); Iron Binding Capacity, Total 461 mcg/dL (261-462)
--- NOTE | 2018-11-07 08:10 | RAD ---
CHEST 2 VIEWS: Date: 11/07/18 INDICATION: Weakness. COMPARISON: Prior exam dated 06/16/18. FINDINGS: Right chest wall port, dual lead pacemaker, and cardiomegaly stable. Lungs are clear. No pleural effu anu or pneumothorax evident. No acute osseous abnormality noted. IMPRESSION: No acute intrathoracic abnormality. Examination appears stable to recent examination dated 06/16/18. POS: [facility]
--- NOTE | 2018-11-07 08:12 | CT ---
CT BRAIN WITHOUT CONTRAST: Date: 11/07/18 INDICATION: History of dizziness, nausea, and chills, with history of cardiac history, congestive heart failure, myocardial infection. And Crohn's disease. COMPARISON: Prior exam dated 11/22/16. FINDINGS: There is worsening mild chronic small vessel white matter ischemic change. Septum pellucidum and thir d ventricle are midline. Basilar cisterns are patent. No acute infarct, hemorrhage, or hydrocephalus is present. Mastoid air cells and paranasal sinuses are clear. IMPRESSION: 1. No acute intracranial abnormality. 2. Worsening mild chronic small vessel white matter ischemic change. POS: [facility]
[2018-11-07] MEDS ORDERED: Bisacodyl 5 MG TAB PO PRN (08:33)
[2018-11-07] MEDS ORDERED: Acetaminophen 325 MG TAB PO PRN (08:33)
[2018-11-07] MEDS ORDERED: Acetaminophen 650 MG Suppository PR PRN (08:33)
[2018-11-07] MEDS ORDERED: IRON SUCROSE COMPLEX 100 MG/5 ML SLOW IVP SCH (08:45)
[2018-11-07] MEDS ORDERED: Iron, Sodium Ferric Gluconate 125 MG in Sodium Chloride 0.9% 100 ML IVPB SCH (09:15)
--- NOTE | 2018-11-07 09:27 | HP ---
PRIMARY CARE PROVIDER: Jet Tyson MD CHIEF COMPLAINT: Dizziness. HISTORY OF PRESENT ILLNESS: Mr. Callaway is a pleasant 87-year-old gentleman, who was seen at [facility] on November 07, 2018. He is a resident of [facility] for the last 6-1/2 years. He reports that he has a cane. He also has a scooter, which he uses to go to the dining room. He also reports falling around 6 times over the last 3 to 4 months. Today morning, he woke up around 4:00 a.m. to go to the bathroom. He felt dizzy and almost fell. He denies any vomiting, but reports nausea and retching. He denies any diarrhea. He denies any chest pain or palpitations. He denies any urinary symptoms. He saw his primary care provider two days ago. He saw his net architect, Dr. Swain, and had his permanent pacemaker checked on September 30, 2018. REVIEW OF SYSTEMS: All other systems reviewed and found to be negative. 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 SURGICAL HISTORY: Pacemaker, appendectomy, MediPort, and cardiac stent. PSYCHIATRIC HISTORY: Depression. SOCIAL HISTORY: The patient denies tobacco use, alcohol use, or recreational drug use. CODE STATUS: I discussed his code status. He is DNAR. FAMILY HISTORY: No family history of coronary artery disease. ALLERGIES: NO KNOWN DRUG ALLERGIES. CURRENT MEDICATIONS: 1. Tamsulosin 0.4 mg 2 times a day. 2. Lasix 20 mg every other day. 3. Aspirin 81 mg daily. 4. Plavix 75 mg daily. 5. Coreg 6.25 mg 2 times a day. 6. Amiodarone 200 mg daily. 7. Atorvastatin 40 mg daily. 8. Amlodipine 10 mg daily. 9. Losartan 100 mg daily. PHYSICAL EXAMINATION: GENERAL: On examination, Mr. Callaway is awake and alert, not in acute distress. VITAL SIGNS: Blood pressure is 146/70, pulse 73, respiratory rate 12, and oxygen saturation 97% on room air. He is afebrile. EYES: No scleral icterus, the patient has conjunctival pallor. ENT: Moist mucosal membranes. No oropharyngeal erythema or exudates. NECK: Supple, nontender, trachea is midline. RESPIRATORY: Accessory muscles of breathing are not active. Chest wall movements are symmetric bilaterally. Lungs are clear to auscultation without wheeze, rhonchi, or crepitations. CARDIOVASCULAR: S1 and S2 are heard, regular. Peripheral pulses palpable. No carotid bruit. No pericardial rub. ABDOMEN: Soft, nontender, bowel sounds heard, no hepatomegaly, no splenomegaly. NEUROLOGIC: Cranial nerves 2 through 12 are intact. Power is 5/5 in all 4 extremities. No focal motor or sensory deficits. Deep tendon reflexes 2+, plantars downgoing bilaterally. SKIN: No rashes or subcutaneous nodules. LYMPHATIC: No cervical lymphadenopathy. PSYCHIATRIC: Normal mood, normal affect, the patient is oriented to person, place, and time. LABORATORY DATA: Mr. Callaway's labs and investigations were reviewed. I reviewed his electrocardiogram, which shows electronic atrial-paced rhythm. I also reviewed his chest x-ray, which does not show any pulmonary infiltrates. Noncontrast CT scan of the brain did not show any acute intracranial abnormality. He has leukopenia with white count of 3500, it was 4200 on September 24, 2018, microcytic anemia with hemoglobin 7.2, hemoglobin was 8.3 on September 24, 2018, normal platelet count. INR 1.0, normal sodium, normal potassium, normal blood urea nitrogen, elevated creatinine of 1.32, it was 1.42 on September 24, 2018, decreased iron of 15, decreased ferritin of 14.42, TIBC 461, close to upper limit of normal at 462, normal LFTs, normal troponin I and urinalysis that is positive for trace leukocyte esterase. ASSESSMENT AND PLAN: Mr. Callaway is a pleasant 87-year-old gentleman, who was seen at [facility] on November 07, 2018. His problem list includes: 1. Symptomatic anemia: Mr. Callaway is presenting with symptomatic anemia. There is no evidence of bleeding at this time. I should note that fecal occult blood test was negative. He will be admitted to the hospital. We will transfuse 1 unit packed RBCs and reassess. 2. Iron deficiency anemia: Mr. Callaway has iron deficiency anemia. We will provide one dose of intravenous iron and start him on oral iron. We will also consult GI Service for opinion and help with management. 3. Dizziness: Most likely secondary to anemia. We will check orthostatic vitals. We will also have permanent pacemaker interrogated. Further management depending on how he does over the next few hours. 4. Congestive heart failure: Appears to be stable. 5. Hypertension: We will monitor vital signs and titrate antihypertensives as needed. 6. History of lymphoma: The patient reports that he is in remission. 7. Coronary artery disease: Appears to be stable. Many thanks for allowing me to participate in your patient's care. Please feel free to contact me with any questions or concerns. LEVEL OF RISK: High. LEVEL OF COMPLEXITY: High. Job ID: [id number]
[2018-11-07 09:55] VITALS: BMI 23.2
[2018-11-07] MEDS: Ferrous Sulfate 325 MG TAB PO SCH (16:51)
--- NOTE | 2018-11-08 00:58 | CON ---
DATE OF CONSULTATION: 11/07/2018 REASON FOR CONSULTATION: Iron-deficiency anemia. HISTORY OF PRESENT ILLNESS: Victorino Callaway is a very pleasant 87-year-old man, previously seen by my GI colleague, Dr. Ernie Ocasio. The patient has a significant past medical history of coronary artery disease with stent placement, prior myocardial infarction, and congestive heart failure. He has a pacemaker in place. He has remote history of gastrointestinal bleeding. He had a fairly severe left-sided diverticular bleed back in 06/2016, confirmed on tagged RBC scan. His last EGD and colonoscopy were at that time. The EGD showed some diffuse gastritis, though no ulceration. There was a benign duodenal nodule that was biopsied at that time, and he had left-sided diverticulosis with bleeding. Surgery was consulted at that time, but the patient's bleeding stopped on its own and never recurred and he never ended up needing surgery for this. Around that time, he was diagnosed with a small B-cell lymphoma in 08/2016 and he underwent several rounds of chemotherapy for this. This is now considered to be in remission. He is on dual anti-platelet therapy with aspirin and Plavix. He denies any chronic gastrointestinal symptoms. He denies any recurrence of overt GI bleeding. There has been no melena or hematochezia. He has no abdominal pain, nausea, or vomiting. He does not take any acid suppression. It looks like he has developed worsening anemia since February 2018. Hemoglobin at that time was 12. Since May, his new baseline has been around 8.5 to 9. He presented to the hospital today after a presyncopal episode associated with transient nausea and generalized abdominal discomfort, which lasted about 30 minutes. He was found to have worsening anemia with hemoglobin down to 7.2. This is microcytic with MCV 74.8, and he is iron deficient with ferritin 14.42. He has received 1 unit of RBCs and is also getting an iron infusion at this time. He says he feels much better. He is back to being asymptomatic. There is no lightheadedness. Stool guaiac was performed and was actually negative today. His pacemaker was interrogated and from what I can tell, it appears there has been no pacemaker malfunction. We are consulted due to this worsening iron-deficiency anemia. REVIEW OF SYSTEMS: Full review of systems including constitutional, head, eyes, ears, nose, throat, GI, , cardiovascular, respiratory, musculoskeletal, and neurologic systems is negative except as noted in the HPI. PAST MEDICAL HISTORY: CHF; myocardial infarction; coronary artery disease with stent placement; hypertension; hyperlipidemia; atrial fibrillation; pacemaker placement; multiple TIAs; depression; small B-cell lymphoma diagnosed in 08/2016, now in remission after chemotherapy; appendectomy; left-sided diverticular bleeding, severe, June 2016, no recurrence since then; and gastritis, demonstrated on last EGD in 06/2016. ALLERGIES: NO KNOWN DRUG ALLERGIES. OUTPATIENT MEDICATIONS: 1. Flomax. 2. Lasix. 3. Aspirin 81 mg daily. 4. Plavix 75 mg daily. 5. Coreg. 6. Amiodarone. 7. Amlodipine. 8. Lipitor. 9. Losartan. SOCIAL HISTORY: No tobacco, alcohol, or drug use. FAMILY HISTORY: Negative for coronary artery disease. PHYSICAL EXAMINATION: VITAL SIGNS: Temperature 98.2, pulse 64, blood pressure 168/75, and 97% oxygen saturation on room air. GENERAL: An 87-year-old man, lying in bed comfortably, in no distress. SKIN: He is pale. No jaundice. No rashes were palpable. EYES: No scleral icterus. Extraocular movements intact. ENT: Mucous membranes are moist. No oral lesions. LYMPH: No submandibular or supraclavicular lymphadenopathy. Thyroid, nontender to palpation. HEART: Irregular rhythm. LUNGS: Clear to auscultation bilaterally. ABDOMEN: Flat bowel sounds present. Soft. Some mild tenderness to palpation in the right side of the abdomen, but no guarding or rebound tenderness. No masses or organomegaly appreciated. EXTREMITIES: No peripheral edema. VESSELS: Radial pulses 2+ bilaterally. NEURO: Cranial nerves 2 through 12 intact bilaterally. No focal deficits. LABORATORY STUDIES: Hemoglobin 7.2, MCV 74.8, WBC 3.5, and platelets 213. Sodium 141, potassium 3.6, BUN 22, and creatinine 1.32. INR 1.0. Troponin negative. Ferritin low at 14.42, iron only 15, and TIBC 461. Urinalysis shows 11 to 20 wbc's. IMAGING STUDIES: CT head showed no acute process. There are some chronic small-vessel white matter ischemic changes. Chest x-ray showed no acute processes. He has stable cardiomegaly and a dual-lead pacemaker. ASSESSMENT AND PLAN: 1. Iron-deficiency anemia, worsening over the past 6 months. 2. Coronary artery disease, on dual anti-platelet therapy. 3. Prior history of left-sided diverticular bleeding, no overt bleeding for the past 2 years. I had a long discussion with the patient about this finding of iron-deficiency anemia. He has no report of any overt bleeding from anywhere. In this context, an occult gastrointestinal bleeding source is most likely, despite the negative FOBT today. He has a known history of left-sided diverticula, but this presentation does not signify diverticular bleeding. He also has a history of gastritis and he is not on any acid suppression, so certainly he may have some chronic low-grade gastritis or even peptic ulcer disease, which is otherwise asymptomatic. There would be some value to performing EGD and colonoscopy for further investigation, particularly as he is going to need dual anti-platelet therapy going forward. On the other hand, the patient really does not want to proceed with any endoscopic investigations. He understands the risks and benefits either way. He would prefer to see how he does on iron supplementation and hopefully, he can keep up his blood counts in that way. I would honor his wishes in this regard. I think that it would also be reasonable to just put him on a daily low-dose PPI due to the possibility of erosive gastritis, given his history of gastritis. He could just be on omeprazole 20 mg daily. I asked the patient to let us know if he changes his mind, we could always consider endoscopic investigation again. GI will sign off at this time, but please call back anytime with questions or concerns. Job ID: [id number]
[2018-11-08 06:25] LABS: Anion Gap 12 mmol/L (10-20); BUN (Urea Nitrogen) 19 mg/dL (8.4-25.7); Calc. Creatinine Clearance 46 mL/min (70-130); Calcium 9.1 mg/dL (7.8-10.44); Carbon Dioxide 24 mmol/L (23-31); Chloride 109 mmol/L (98-107); Estimated GFR-MDRD 62; Glucose 85 mg/dL (83-110); Sodium 141 mmol/L (136-145)
[2018-11-08 06:35] LABS: #Eosinphils 0.1 thou/uL (0.0-0.7); #Lymphocytes 1.4 thou/uL (1.20-3.40); #Monocytes 0.5 thou/uL (0.11-0.59); #Neutrophils 2.3 thou/uL (1.40-6.50); %Basophils 0.7 % (0.0-1.0); %Lymphocytes 31.3 % (21.0-51.0); %Monocytes 10.7 % (0.0-10.0); %Neutrophils 54.3 % (42.0-75.0); Mean Corpuscular Hemoglobin 23.2 pg (27.0-31.0); Mean Corpuscular Volume 74.7 fL (78.0-98.0); Mean Platelet Volume 10.9 fL (7.4-10.4); Platelet Count 194 thou/uL (130-400); RBC Distribution Width 17.8 % (11.5-14.5); Red Blood Cell (RBC) Count 3.45 mill/uL (4.70-6.10); White Blood Cell (WBC) Count 4.3 thou/uL (4.8-10.8)
[2018-11-08] MEDS: Ferrous Sulfate 325 MG TAB PO SCH (09:02)
[2018-11-08 12:30] VITALS: BP 159/73; TEMP 98.1
--- NOTE | 2018-11-09 01:56 | DIS ---
DATE OF ADMISSION: 11/07/2018 DATE OF DISCHARGE: 11/08/2018 PRIMARY CARE PROVIDER: Dr. Bernard Ortiz. DISCHARGE DIAGNOSES: 1. Symptomatic anemia. 2. Orthostatic hypotension. 3. Iron deficiency. 4. Acute kidney injury. CONDITION OF PATIENT ON THE DAY OF DISCHARGE: Stable. I assessed Mr. Callaway on the day of discharge. He denies any chest pain or shortness of breath. Vital signs are stable, he has orthostatic hypotension. S1 and S2 are heard, regular. Lungs are clear to auscultation bilaterally. CONSULTATIONS DURING THIS HOSPITALIZATION: Gastroenterology, Dr. Bernard Tanner. DISCHARGE MEDICATIONS: Mr. Callaway is being discharged on ferrous sulfate 325 mg 2 times a day. Otherwise, no change was made to his pre-admission home medications. Please note that we could not obtain a list of his pre-admission medications during this hospitalization. HOSPITAL COURSE: Mr. Callaway is a pleasant 87-year-old gentleman, who was admitted to [facility] on 11/08/2018, for symptomatic anemia. He was seen by Gastroenterology Service. He was also found to have iron deficiency. He received 1 unit of packed RBCs. He also received intravenous iron infusion and has been started on ferrous sulfate 325 mg 2 times a day. Fecal occult blood test was negative. He was advised colonoscopy by Gastroenterology Service, but he did not wish to have a colonoscopy. He was also found to have orthostatic hypotension. Cortisol level was normal. He is advised to follow up with his primary care provider. He has also been advised to wear stockings and to stand up slowly from sitting or lying position. Many thanks for allowing me to participate in your patient's care. Please feel free to contact me with any questions or concerns. On the day of discharge, he has sodium of 141, potassium 4.0, creatinine 1.13, white count 4300, hemoglobin 8, and platelet count 194,000. DISCHARGE DESTINATION: [facility], from where patient was admitted to the hospital. Job ID: [id number]
--- NOTE | 2018-11-14 14:36 | EKG ---
Test Reason : Blood Pressure : / mmHG Vent. Rate : 076 BPM Atrial Rate : 076 BPM P-R Int : 116 ms QRS Dur : 110 ms QT Int : 418 ms P-R-T Axes : -20 000 039 degrees QTc Int : 470 ms Electronic atrial pacemaker Inferior infarct , age undetermined Abnormal ECG Confirmed by SAMIR KOEHLER D.O. ([id number]), production editor GLORIA AUSTIN ([id number]) on 11/14/2018 2:35:54 PM Referred By: Confirmed By:SAMIR KOEHLER D.O.
== END 2018-11-08 15:37 | disposition home or self-care (01) ==
LOC: ERS 06:12 → 2SW 07:20
PROVIDERS: ADMIT Internal Medicine; ATTEND Internal Medicine
DX: D50.9 Iron deficiency anemia, unspecified (principal); I95.1 Orthostatic hypotension; N17.9 Acute kidney failure, unspecified; I11.0 Hypertensive heart disease with heart failure; I50.9 Heart failure, unspecified; I25.10 Atherosclerotic heart disease of native coronary artery without angina pectoris; K50.90 Crohn's disease, unspecified, without complications; I25.2 Old myocardial infarction; E78.5 Hyperlipidemia, unspecified; Z85.72 Personal history of non-Hodgkin lymphomas; Z86.73 Personal history of transient ischemic attack (TIA), and cerebral infarction without residual deficits; Z79.02 Long term (current) use of antithrombotics/antiplatelets; Z79.82 Long term (current) use of aspirin; Z79.899 Other long term (current) drug therapy; Z95.0 Presence of cardiac pacemaker; Z95.5 Presence of coronary angioplasty implant and graft
CPT/HCPCS: 36430; 70450; 71045; 80048; 80053; 82274; 82533; 82550; 82728; 83540; 83550; 84484; 85025 ×2; 85610; 85730; 86850; 86900; 86901; 86920; 93005; 96365; 96366; 97139; 99285; G0378 ×2; P9016; 36415; 81003; 81015; J2916; J3490

== ENCOUNTER 2019-04-05 07:17 | Day surgery (SDC) | payer MEDICARE, OTHER ==
[2019-04-02 13:31] VITALS: BMI 25.0
[2019-04-05 08:50] LABS: Hemoglobin 12.4 g/dL (14.0-18.0); Mean Corpuscular HGB CONC 33.4 g/dL (32.0-36.0); Mean Corpuscular Hemoglobin 29.6 pg (27.0-31.0); Mean Corpuscular Volume 88.6 fL (78.0-98.0); Mean Platelet Volume 9.2 fL (7.4-10.4); Platelet Count 132 thou/uL (130-400); RBC Distribution Width 16.6 % (11.5-14.5); Red Blood Cell (RBC) Count 4.19 mill/uL (4.70-6.10); White Blood Cell (WBC) Count 4.4 thou/uL (4.8-10.8)
[2019-04-05] MEDS ORDERED: Bupivacaine/Epinephrine 0.25% 30 ML VIAL ONE (08:53)
[2019-04-05] MEDS ORDERED: Bacitracin Zinc Ointment 30 gm TUBE ONE (08:53)
[2019-04-05] MEDS ORDERED: Fentanyl 100 MCG/2 ML VIAL ONE ×2 (08:56→11:51)
[2019-04-05 09:10] LABS: Anion Gap 13 mmol/L (10-20); BUN (Urea Nitrogen) 26 mg/dL (8.4-25.7); Calc. Creatinine Clearance 42 mL/min (70-130); Carbon Dioxide 24 mmol/L (23-31); Chloride 107 mmol/L (98-107); Estimated GFR-MDRD 58; Glucose 95 mg/dL (83-110); Sodium 140 mmol/L (136-145)
[2019-04-05 09:23] LABS: Band 2 % (5-11); Eosinophils 3 % (0-10); Lymphocytes 37 % (21-51); MDiff Complete? YES; Monocytes 10 % (0-10); Neutrophil 45 % (42-75); Ovalocytes SLIGHT = 2-5 cells (100X) (0-1/hpf); Platelet Morphology Comment Appears Adequate; Polychromasia SLIGHT = 2-3 cells (100X) (0-2/hpf); Reactive Lymphocytes 3 % (0-10)
[2019-04-05] MEDS ORDERED: EPINEPHrine 1 MG/ML AMP ONE (10:10)
[2019-04-05] MEDS ORDERED: Dexamethasone 20 MG/5 ML VIAL ONE (12:38)
[2019-04-05] MEDS ORDERED: Ondansetron PF 4 MG/2 ML Vial ONE (12:38)
[2019-04-05] MEDS ORDERED: PROPOFOL 200 MG/20 ML VIAL ONE (12:38)
[2019-04-05] MEDS ORDERED: Lidocaine 1% PF 5 ML VIAL ONE (12:38)
--- NOTE | 2019-04-06 10:08 | OP ---
DATE OF PROCEDURE: 04/05/2019 PREOPERATIVE DIAGNOSES: 1. 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 2. 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 3. 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 PROCEDURES PERFORMED: 1. Excision of squamous cell carcinoma, left wrist (3.2 cm including adequate margins) (38209). 2. Excision of squamous cell carcinoma, left hand (3.3 cm including adequate margins) (79551). 3. Excision of squamous cell carcinoma, left forearm (4.7 cm including adequate margins) (75579). 4. Split-thickness skin graft, left wrist (6 cm2) (35439). 5. Split-thickness skin graft, left hand (5 cm2) (63929). 6. Intermediate closure, left forearm (9 cm) (17010). DESCRIPTION OF PROCEDURE: Following induction of adequate anesthesia, the patient was prepped and draped in the usual sterile fashion in supine position. Attention was first turned to the left wrist lesion. The lesion was adequately excised including adequate margins. Frozen section analysis came back as margins clear. The lesion could not be closed primarily. Attention was turned to the left hand. The lesion was widely excised including adequate margins. Frozen section analysis came back as margins clear. This defect was also primarily. The lesion in the left proximal forearm was also widely excised. Frozen section analysis came back as margins negative. To close the left wrist, a split-thickness skin graft was harvested from the ipsilateral thigh and meshed at 1.5:1. It was secured in place with derrick. Similar procedure was done for the left hand. The left forearm to be closed primarily using a layered closure 3-0 Monocryl suture and 3-0 Prolene suture with dog ears being taken out proximally and distally. The patient tolerated the procedure well. Job ID: [id number]
== END 2019-04-05 13:40 | disposition home or self-care (01) ==
LOC: SDC 07:17
PROVIDERS: ATTEND Plastic Surgery
PROC: 0HRGX74 Replacement of Left Hand Skin with Autologous Tissue Substitute, Partial Thickness, External Approach (ICD-10-PCS; principal; 2019-04-05)
PROC: 0HREX74 Replacement of Left Lower Arm Skin with Autologous Tissue Substitute, Partial Thickness, External Approach (ICD-10-PCS; 2019-04-05)
DX: C44.629 Squamous cell carcinoma of skin of left upper limb, including shoulder (principal)
CPT/HCPCS: 36415; 80048; 85007; 85027; 85610; 85730; 88305; 88331; 88332; 99283; J0131; J0171; J0690; J1100; J2001; J2405; J2704; J3010

== ENCOUNTER 2019-04-05 17:33 | Emergency (ER) | payer MEDICARE, OTHER ==
[2019-04-05 20:04] LABS: #Lymphocytes 0.6 thou/uL (1.20-3.40); #Monocytes 0.1 thou/uL (0.11-0.59); #Neutrophils 2.7 thou/uL (1.40-6.50); %Basophils 0.4 % (0.0-1.0); %Lymphocytes 17.3 % (21.0-51.0); %Monocytes 2.8 % (0.0-10.0); %Neutrophils 79.5 % (42.0-75.0); Hemoglobin 11.8 g/dL (14.0-18.0); Mean Corpuscular HGB CONC 33.3 g/dL (32.0-36.0); Mean Corpuscular Hemoglobin 29.9 pg (27.0-31.0); Mean Corpuscular Volume 89.6 fL (78.0-98.0); Mean Platelet Volume 9.1 fL (7.4-10.4); Platelet Count 143 thou/uL (130-400); RBC Distribution Width 16.5 % (11.5-14.5); Red Blood Cell (RBC) Count 3.95 mill/uL (4.70-6.10); White Blood Cell (WBC) Count 3.4 thou/uL (4.8-10.8)
[2019-04-05 20:10] LABS: PTT 24.4 SEC (22.9-36.1); Prothrombin Time 13.5 SEC (12.0-14.7)
[2019-04-05 20:26] LABS: ALT (SGPT) 18 U/L (8-55); AST (SGOT) 14 U/L (5-34); Albumin 3.7 g/dL (3.4-4.8); Alkaline Phosphatase 76 U/L (40-110); Anion Gap 12 mmol/L (10-20); BUN (Urea Nitrogen) 28 mg/dL (8.4-25.7); Bilirubin, Total 0.5 mg/dL (0.2-1.2); Calc. Creatinine Clearance 0 mL/min (70-130); Calcium 8.8 mg/dL (7.8-10.44); Carbon Dioxide 26 mmol/L (23-31); Chloride 105 mmol/L (98-107); Estimated GFR-MDRD 50; Globulin 2.4 g/dL (2.4-3.5); Glucose 209 mg/dL (83-110); Potassium 3.9 mmol/L (3.5-5.1); Protein, Total 6.1 g/dL (5.8-8.1); Sodium 139 mmol/L (136-145)
== END 2019-04-05 20:27 | disposition home or self-care (01) ==
LOC: ERS 17:33
DX: L76.22 Postprocedural hemorrhage of skin and subcutaneous tissue following other procedure (principal); I25.2 Old myocardial infarction; I10 Essential (primary) hypertension; E78.00 Pure hypercholesterolemia, unspecified; I48.91 Unspecified atrial fibrillation; F32.9 Major depressive disorder, single episode, unspecified; F17.200 Nicotine dependence, unspecified, uncomplicated; Z79.82 Long term (current) use of aspirin
CPT/HCPCS: 36415; 85610; 85730

== ENCOUNTER 2019-04-17 11:16 | Inpatient (IN) | payer MEDICARE, OTHER ==
[2019-04-17] MEDS ORDERED: Piperacillin/Tazobactam 4.5 GM VIAL ONE (12:11)
[2019-04-17] MEDS ORDERED: Sodium Chloride 0.9% 100 ML ONE (12:11)
[2019-04-17 12:23] LABS: #Eosinphils 0.1 thou/uL (0.0-0.7); #Lymphocytes 1.4 thou/uL (1.20-3.40); #Monocytes 0.5 thou/uL (0.11-0.59); #Neutrophils 3.7 thou/uL (1.40-6.50); %Basophils 0.4 % (0.0-1.0); %Lymphocytes 23.8 % (21.0-51.0); %Monocytes 8.1 % (0.0-10.0); %Neutrophils 65.7 % (42.0-75.0); Hemoglobin 11.5 g/dL (14.0-18.0); Mean Corpuscular HGB CONC 33.7 g/dL (32.0-36.0); Mean Corpuscular Hemoglobin 30.3 pg (27.0-31.0); Mean Platelet Volume 8.6 fL (7.4-10.4); Platelet Count 164 thou/uL (130-400); RBC Distribution Width 16.9 % (11.5-14.5); White Blood Cell (WBC) Count 5.7 thou/uL (4.8-10.8)
[2019-04-17 12:45] LABS: ALT (SGPT) 17 U/L (8-55); AST (SGOT) 18 U/L (5-34); Alkaline Phosphatase 87 U/L (40-110); Anion Gap 16 mmol/L (10-20); BUN (Urea Nitrogen) 25 mg/dL (8.4-25.7); Bilirubin, Total 0.8 mg/dL (0.2-1.2); Calc. Creatinine Clearance 0 mL/min (70-130); Calcium 9.1 mg/dL (7.8-10.44); Carbon Dioxide 22 mmol/L (23-31); Chloride 107 mmol/L (98-107); Estimated GFR-MDRD 50; Globulin 2.8 g/dL (2.4-3.5); Glucose 104 mg/dL (83-110); Potassium 3.9 mmol/L (3.5-5.1); Protein, Total 6.8 g/dL (5.8-8.1); Sodium 141 mmol/L (136-145)
[2019-04-17] MEDS ORDERED: Ondansetron PF 4 MG/2 ML Vial IVP PRN (15:55)
[2019-04-17] MEDS ORDERED: Acetaminophen 325 MG TAB PO PRN (15:55)
[2019-04-17] MEDS ORDERED: Ondansetron ODT 4 MG TAB SL PRN (15:55)
[2019-04-17 16:14] VITALS: BMI 23.9
[2019-04-17] MEDS ORDERED: Sodium Chloride 0.9% 500 ML IV SCH (23:00)
[2019-04-17] MEDS: Piperacillin/Tazobactam 3.375 GM in Sodium Chloride 0.9% 100 ML IVPB SCH (23:15)
[2019-04-18] MEDS: Piperacillin/Tazobactam 3.375 GM in Sodium Chloride 0.9% 100 ML IVPB SCH ×3 (05:10→22:55)
[2019-04-18] MEDS: Ferrous Sulfate 325 MG TAB PO SCH ×2 (08:11→18:17)
[2019-04-18] MEDS: Aspirin 81 mg Enteric Coated Tablet PO SCH (08:12)
[2019-04-18] MEDS: Amiodarone 200 MG TAB PO SCH (08:12)
[2019-04-18] MEDS: Tamsulosin HCl 0.4 MG CAP PO SCH ×2 (08:12→19:50)
[2019-04-18] MEDS ORDERED: Ondansetron PF 4 MG/2 ML Vial IVP PRN (11:55)
[2019-04-18] MEDS ORDERED: Senokot S 8.6-50 MG TAB PO PRN (11:55)
[2019-04-18] MEDS ORDERED: Acetaminophen 325 MG TAB PO PRN (11:55)
[2019-04-18] MEDS ORDERED: Bisacodyl 10 MG SUPP PR PRN (11:55)
[2019-04-18] MEDS ORDERED: Guaifenesin DM 100-10/5 ML UDCUP PO PRN (11:55)
[2019-04-18] MEDS ORDERED: HYDROcodone/Acetaminophen 5/325 mg Tablet PO PRN (11:59)
[2019-04-18] MEDS ORDERED: Vancomycin HCl 1 GM in Premix Bag 1 BAG IVPB SCH (13:00)
--- NOTE | 2019-04-18 17:29 | HP ---
REASON FOR ADMISSION: Left upper extremity cellulitis. HISTORY OF PRESENTING ILLNESS: The patient gives history of having had biopsy done on lesions on his left upper extremity nearly 3 of them, all of them came back positive for malignancy. This was done by a tank bottom assembler at [facility]. He later saw Dr. Aurelio Stacy for plastic surgery. He has had surgery done with excision of the same at 3 different places on the left hand on forearm. He was recovering well per patient, but from last 3 days, he has had persistent redness and swelling in the left forearm and the pain intensified which prompted him to come to the emergency room. He called Dr. Aurelio Stacy, who was on vacation and he was asked to come to the emergency room. In the ER, he has had derrick removed on the lower forearm surgical site with drainage of fluid, which has given him relief from pain. He has no complaints of chest pain, fever, palpitation, PND, or orthopnea. No cough or expectoration. PAST MEDICAL AND SURGICAL HISTORY: History of malignant skin lesions removed from left forearm at 3 places, one on the left dorsal aspect of the hand, another one with a linear incision on the lower forearm close to the elbow. He also had another site just distal to the wrist which is currently in a dressing. All of these were removed by Dr. Aurelio Stacy. Hypertension, coronary artery disease, history of CHF, prior stent for coronaries, history of Crohn disease, history of lymphoma, in remission, dyslipidemia, history of paroxysmal atrial fibrillation, pacemaker, MediPort in the right lower chest, appendectomy, history of TIA in the past. CURRENT MEDICATIONS: The patient is on: 1. Flomax 0.4 mg extended release twice daily. 2. Aspirin 81 mg p.o. daily. 3. Plavix 75 mg p.o. daily. 4. Coreg 6.25 mg p.o. twice daily. 5. Amiodarone 200 mg p.o. daily. 6. Atorvastatin 40 mg p.o. daily. 7. Norvasc 10 mg p.o. daily. 8. Losartan 100 mg p.o. daily. 9. Ferrous sulfate 325 mg twice daily. ALLERGIES: NO KNOWN DRUG ALLERGIES. PERSONAL HISTORY: Does not abuse alcohol or drugs. No history of smoking. He lives at [facility]. He normally ambulates with a cane. FAMILY HISTORY: Both parents of natural causes, mother was 95 years, father was in his 70s. CODE STATUS: Do not attempt to resuscitate. This was discussed with the patient at bedside. Power of trust and estates attorney is his daughter, Ms. Shane Maldonado. REVIEW OF SYSTEMS: CONSTITUTIONAL: Negative for weight loss or gain, ability to conduct usual activities. SKIN: Negative for rash, itching. EYES: Negative for double vision, pain. ENT/MOUTH: Negative for nose bleeding, neck stiffness, pain, tenderness. CARDIOVASCULAR: Negative for palpitations, dyspnea on exertion, orthopnea. RESPIRATORY: Negative for shortness of breath, wheezing, cough, hemoptysis, fever or night sweats. GASTROINTESTINAL: Negative for poor appetite, abdominal pain, heartburn, nausea , vomiting, constipation, or diarrhea. GENITOURINARY: Negative for urgency, frequency, dysuria, nocturia. MUSCULOSKELETAL: Negative for pain, swelling. NEUROLOGIC/PSYCHIATRIC: Negative for anxiety, depression. ALLERGY/IMMUNOLOGIC: Negative for skin rash, bleeding tendency. PHYSICAL EXAMINATION: GENERAL: The patient is an 88-year-old male who is currently not in any acute distress. VITAL SIGNS: Blood pressure 119/68, pulse 80 per minute, respiratory rate 18 per minute, temperature 98.7 degrees Fahrenheit, and saturating 98% on room air. NECK: Supple. No elevated JVD. HEENT: Eyes; extraocular muscles intact. Pupils reacting to light. Oral cavity, mucous membranes are moist, no exudates or congestion. CARDIOVASCULAR: S1 and S2 heard. Regular rhythm. RESPIRATORY: Air entry 1+ bilateral. No rales or rhonchi. ABDOMEN: Soft. Bowel sounds heard. No tenderness, rigidity, or guarding. EXTREMITIES: Left upper extremity, there is a skin grafting done on the dorsal aspect of the left wrist which is a circular surgical lesion, measuring 3 x 3 cm , it still has derrick surrounding it. He also has a lesion over the forearm on the dorsal aspect which is covered. He has a linear incision on the lower forearm closer to the elbow, which has edema, erythema with no obvious purulent drainage as such. The derrick on this have been removed. This linear incision measures roughly 6 to 7 cm. Lower extremities; no peripheral edema or calf tenderness. VASCULAR: Peripheral pulses 1+ bilateral. No ischemic ulcerations or gangrene. CENTRAL NERVOUS SYSTEM: No gross focal deficits noted. The patient is alert, awake, and oriented well. PSYCHIATRIC: The patient's mood is euthymic. No hallucinations or delusions. LABORATORY DATA: White count of 5.7, H and H 11 and 34, platelet count is 164, MCV is 90 with 65% neutrophils. BUN 25, creatinine 1.36, serum bicarb 22. Electrolytes stable. Calcium 9.1. AST, ALT, alkaline phosphatase within normal limits. Albumin is 4.0. CLINICAL IMPRESSION AND PLAN: The patient will be admitted to Med/Surg floor for left forearm and wrist area cellulitis with recent surgery and skin grafting done from his left thigh. He has had known history of malignancy at these sites, which were excised by Dr. Aurelio Stacy. The patient has received vancomycin and Zosyn in the ER and we will continue the same for now. We will also involve Wound Care and also consult Dr. Aurelio Stayc. We will also consult Dr. Cardenas for Infectious Disease. We will continue his amiodarone, Norvasc, aspirin, Coreg, Plavix, ferrous sulfate, and Flomax as before. We will continue to closely monitor him on Med/ Surg floor. Job ID: [id number] [facility]
[2019-04-18] MEDS: Carvedilol 6.25 MG TAB PO SCH (19:49)
[2019-04-18] MEDS ORDERED: Amlodipine 10 MG TAB PO SCH (21:00)
[2019-04-18] MEDS ORDERED: Atorvastatin Calcium 40 MG TAB PO SCH (21:00)
--- NOTE | 2019-04-18 22:09 | CON ---
DATE OF CONSULTATION: 04/18/2019 REASON FOR CONSULTATION: Left forearm postop infection. 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 The patient had resection with skin grafting by Dr. Stacy. The procedures were carried out on April 12. The patient now has developed inflammatory process with pain and swelling at the proximal forearm cancer site. This site did not require grafting and was just primarily stitched. The biopsies showed clear margins and there was evidence of invasive squamous cell carcinoma in all the different samples in the left forearm, which is the area of interest. There was only a small focus of invasion about 0.8 mm and all margins were not involved. Currently, he denies any headaches. No visual symptoms, sore throat, odynophagia, or dysphagia. No cough or sputum production. No chest pain. No abdominal pain or diarrhea. No genitourinary symptoms. The lesion has improved quite significantly since admission and start antimicrobial therapy. No neurological symptoms. PAST MEDICAL HISTORY: Ischemic cardiomyopathy, hypertension, hyperlipidemia, Crohn disease, small cell lymphoma in remission after chemo through a port, right subclavian location, prior TIAs, pacemaker which has been exchanged recently, appendectomy, MediPort still in place, cardiac stent. SOCIAL HISTORY: He is a , lives close by. No alcoholic beverage use. Actually he smokes cigars, but not cigarettes. ALLERGIES: NONE. MEDICATIONS: At this time; 1. Zosyn. 2. Vancomycin. 3. Tylenol. 4. Cash. 5. Cordarone. 6. Norvasc. 7. Ecotrin. 8. Lipitor. 9. Dulcolax. 10. Coreg. 11. Plavix. 12. Lovenox. 13. Pepcid. 14. Feosol. 15. Zosyn. 16. Vancomycin. PHYSICAL EXAMINATION: VITAL SIGNS: Essentially normal. Slight elevation in systolic blood pressure. SKIN: Shows the left forearm medial aspect with erythema and an area of incision which is already healed with stitches have been removed during this admission. There is an area of erythema surrounding the area of incision measuring about 3 cm in each side extending along the incision aspect. No purulent drainage. Lsgx-gv-[id number] tenderness. Remainder aspect of his surgical sites including the distal left forearm and hand are covered by dressing. According to the patient , he had no inflammatory changes in those sites. The patient is voiding spontaneously. Otherwise, skin exam was not remarkable. Port site without inflammatory changes. No lymphadenopathy. HEENT: Ocular movements conjugate. Oral cavity normal except for absence of [place] teeth with artificial dentures. NECK: Supple. No jugular venous distention. LUNGS: Symmetric. Clear breath sounds. HEART: S1, S2. Regular rate. No S3 or S4. ABDOMEN: Soft. Not distended or tender. No ascites. No bladder distention. No other joint inflammatory process noted. Pulses are 1+ in dorsalis pedis, 1+ edema in lower extremities. NEURO: Nonfocal including cognitive function. LABORATORY DATA: White cell count 5.7, hemoglobin 11.5, platelets 164 with 65% neutrophils and creatinine 1.36 which is a bit higher than his baseline. Liver profile within normal limits. Two sets of blood cultures thus far no growth. IMAGING STUDIES: We have no imaging studies. ASSESSMENT: 1. Ischemic cardiomyopathy. 2. Small cell lymphoma, in remission, after chemo recently concluded. 3. Port in the right subclavian location. 4. Squamous cell carcinoma, left upper extremity with 3 different sites, two of them required skin grafting. The more proximal one was able to be managed with the resection and primary closure. This one has developed inflammatory process with cellulitis. DISCUSSION: The patient may develop abscess in the subsequent days and will have to be continue to be monitored carefully to define if he is going to need some further surgical intervention or not. The organisms typically involved in this kind of process included Staphylococcus aureus including MRSA, streptococci, and gram-negative rods. Continue vancomycin and Zosyn. Monitor clinical progress. If there is no further improvement and there is persistence of tenderness and swelling/erythema, then he will need a CT of the area or MRI or just surgical consultation for exploration of the area for likely abscess. If there is resolution of all the inflammatory processes, we will have to consider discharge planning on oral antimicrobial therapy with possibly a combination of quinolone with doxycycline since we do not have any Microbiology information. Job ID: [id number] [facility]
[2019-04-19 04:48] LABS: #Eosinphils 0.1 thou/uL (0.0-0.7); #Lymphocytes 1.2 thou/uL (1.20-3.40); #Monocytes 0.4 thou/uL (0.11-0.59); #Neutrophils 2.2 thou/uL (1.40-6.50); %Basophils 0.9 % (0.0-1.0); %Eosinophils 2.9 % (0.0-10.0); %Lymphocytes 30.5 % (21.0-51.0); %Neutrophils 54.7 % (42.0-75.0); Hemoglobin 10.5 g/dL (14.0-18.0); Mean Corpuscular HGB CONC 33.4 g/dL (32.0-36.0); Mean Corpuscular Hemoglobin 30.3 pg (27.0-31.0); Mean Corpuscular Volume 90.8 fL (78.0-98.0); Mean Platelet Volume 8.8 fL (7.4-10.4); Platelet Count 139 thou/uL (130-400); RBC Distribution Width 16.6 % (11.5-14.5); Red Blood Cell (RBC) Count 3.47 mill/uL (4.70-6.10)
[2019-04-19 05:08] LABS: Anion Gap 12 mmol/L (10-20); BUN (Urea Nitrogen) 21 mg/dL (8.4-25.7); Calc. Creatinine Clearance 47 mL/min (70-130); Calcium 8.5 mg/dL (7.8-10.44); Carbon Dioxide 22 mmol/L (23-31); Chloride 108 mmol/L (98-107); Estimated GFR-MDRD 60; Glucose 86 mg/dL (83-110); Potassium 3.5 mmol/L (3.5-5.1); Sodium 138 mmol/L (136-145)
[2019-04-19] MEDS: Piperacillin/Tazobactam 3.375 GM in Sodium Chloride 0.9% 100 ML IVPB SCH ×2 (05:09→14:17)
[2019-04-19] MEDS: Amiodarone 200 MG TAB PO SCH (08:42)
[2019-04-19] MEDS: Carvedilol 6.25 MG TAB PO SCH (08:43)
[2019-04-19] MEDS: Tamsulosin HCl 0.4 MG CAP PO SCH (08:44)
[2019-04-19] MEDS: Aspirin 81 mg Enteric Coated Tablet PO SCH (08:44)
[2019-04-19] MEDS: Ferrous Sulfate 325 MG TAB PO SCH (08:45)
[2019-04-19] MEDS ORDERED: Clopidogrel Bisulfate 75 MG TAB PO SCH (09:00)
[2019-04-19] MEDS ORDERED: Enoxaparin Sodium 40 MG/0.4 ML SYRINGE SC SCH (09:00)
[2019-04-19] MEDS ORDERED: Famotidine 20 MG TAB PO SCH (09:00)
[2019-04-19 11:29] VITALS: BP 171/85; TEMP 97.5
[2019-04-19 12:23] LABS: Vancomycin, Trough 9.7 ug/mL
[2019-04-19] MEDS ORDERED: Vancomycin HCl 1.5 GM in Sodium Chloride 0.9% 250 ML 300 ML IVPB SCH (13:00)
--- NOTE | 2019-04-19 13:42 | DIS ---
DATE OF ADMISSION: 04/18/2019 DATE OF DISCHARGE: 04/19/2019 DISCHARGE DISPOSITION: Home. FOLLOWUP: 1. Follow up with primary care physician, Dr. Bernard Ortiz, in 1 week. 2. Follow up with Dr. Stacy later this week as scheduled. CODE STATUS: Do not resuscitate. DISCHARGE MEDICATIONS: 1. Doxycycline 100 mg b.i.d. for next 10 days. 2. Rifampin 300 mg b.i.d. 3. All other home medications were left unchanged. Basic metabolic profile after 1 week is recommended. Primary care physician advised to follow. INPATIENT CONSULTANTS: 1. Infectious Disease, Dr. Cardenas. 2. Surgery, Dr. Stacy. The patient was seen and examined on the day of discharge. Denies any new complaints. No chest pain, shortness of breath, or palpitations reported. BRIEF HOSPITAL COURSE: The patient is an 88-year-old male with squamous cell cancer, underwent surgical intervention as an outpatient by Dr. Stacy. He was admitted with a diagnosis of left upper extremity cellulitis. He was started on vancomycin and Zosyn. His wound cultures showed gram-positive cocci. He also underwent bedside incision and drainage by Dr. Stacy. His antibiotics have been transitioned to oral doxycycline and rifampin per Infectious Disease recommendation. He has been cleared by consultants for discharge. He was advised to follow up on the final wound culture. FINAL DIAGNOSES: 1. Left upper extremity cellulitis with recent skin grafting. 2. Coronary artery disease. 3. Hypertension. 4. History of congestive heart failure. 5. History of lymphoma. 6. Dyslipidemia. 7. Paroxysmal atrial fibrillation. 8. History of transient ischemic attacks. 9. Chronic kidney disease, stage 2, with mild acute kidney injury. Repeat basic metabolic profile after 1 week is recommended. Primary care physician advised to follow. PLAN: Plan of care was discussed with the patient in detail, he stated understanding. Job ID: [id number]
--- NOTE | 2019-04-21 04:23 | PQF ---
MOUNIKA CARLTON MALIK MD [id number] SURG A- [id number] CLINICAL DOCUMENTATION CLARIFICATION FORM: POST DISCHARGE Addendum to original discharge summary date: ____ Late entry note date: __ DATE: 04/21/19 ATTN: Brandon Martin Please exercise your independent, professional judgment in responding to the clarification form. Clinical indicators are provided on the bottom of this form for your review Can you please further specify if cellulitis is a complication of recent skin grafting or not? Please check appropriate box(s): [ ] Cellulitis is a complication of recent skin grafting [ ] Cellulitis is not a complication of recent skin grafting [ ] Other diagnosis please specify [ x ] Unable to determine In addition, please specify: Present on Admission (POA): [ ] Yes [ ] No [ ] Unable to determine CLINICAL INDICATORS - SIGNS / SYMPTOMS / LABS ED Provider 04/18 pg.4- Diagnosis Post Op Infection H and P pg.1 04/18- The patient gives history of having had biopsy done on lesion on his left upper extremity H and p pg.3- left forearm and wrist cellulitis with recent surgery and skin grafting done form the left thigh DS pg.1- Wound culture showed gram positive cocci Consult 04/18 Dr. Cardenas pg.1- Reason for Consult left forearm postop infection Consult 04/18 Dr. Cardenas pg 1 - The patient has resection with skin grafting Consult 04/18 Dr. Cardenas pg 1 - The patient now has developed inflammatory process with pain and swelling at the proximal forearm cancer site Consult 04/18 Dr. Cardenas pg 2 - There is an area of erythema surrounding the area of incision RISK FACTORS History of malignant skin lesion removed in the past- H and P pg.1 Left Upper extremity cellulitis with recent skin graft 88 years old male DS 04/19 pg 1 hx of squamous cell cancer DS 04/19 pg 1 HLD DS 04/19 pg 2 CKD stage 2 DS 04/19 pg 2 Smoker Consult 04/18 Dr. Cardenas TREATMENT: Infectious Consult- Dr Cardenas 04/18 Wound Culture- Microbiology 04/18 IV Fluids- SEP 06 Vancomycin 1gm IV-SEP 06 Surgery Consult DS 04/19 pg 1 Zosyn 3.375gm IV SEP 06 (This form is maintained as a part of the permanent medical record) 2014 [email or web address] All Rights Reserved Sandor [not provided] MTDD
== END 2019-04-19 14:38 | disposition home or self-care (01) | DRG 603 ==
LOC: ERS 11:16 → SURG A 15:46 → OBSVTOIN 04-18 11:55
PROVIDERS: ADMIT Internal Medicine; ATTEND Internal Medicine
DX: L03.114 Cellulitis of left upper limb (principal); K50.90 Crohn's disease, unspecified, without complications; I13.0 Hypertensive heart and chronic kidney disease with heart failure and stage 1 through stage 4 chronic kidney disease, or unspecified chronic kidney disease; N17.9 Acute kidney failure, unspecified; Z66 Do not resuscitate; I50.9 Heart failure, unspecified; E78.00 Pure hypercholesterolemia, unspecified; F32.9 Major depressive disorder, single episode, unspecified; I48.0 Paroxysmal atrial fibrillation; E78.5 Hyperlipidemia, unspecified; I25.10 Atherosclerotic heart disease of native coronary artery without angina pectoris; I25.5 Ischemic cardiomyopathy; N18.2 Chronic kidney disease, stage 2 (mild); I25.2 Old myocardial infarction; Z95.1 Presence of aortocoronary bypass graft; Z95.5 Presence of coronary angioplasty implant and graft; Z90.49 Acquired absence of other specified parts of digestive tract; Z85.72 Personal history of non-Hodgkin lymphomas; Z86.73 Personal history of transient ischemic attack (TIA), and cerebral infarction without residual deficits; Z79.82 Long term (current) use of aspirin; Z79.899 Other long term (current) drug therapy; Z95.0 Presence of cardiac pacemaker; Z79.02 Long term (current) use of antithrombotics/antiplatelets; F17.290 Nicotine dependence, other tobacco product, uncomplicated
CPT/HCPCS: 36415; 80048; 80053; 80202; 83605; 85025; 87040; 87070; 87077; 87186; 87205; 96365; 96367; J1650; J2543; J3370; J3490